=== PATIENT | male | born 1935 | race Caucasian/White ===

== ENCOUNTER 2017-05-31 04:56 | Inpatient (IN) | payer OTHER, BC ==
[2017-05-06 09:23] VITALS: Ht 172.7 cm; Wt 77.9 kg
--- NOTE | 2017-05-06 10:00 | PAT Medication Instructions ---
Service Date May 06, 2017. Current Home Medication List Acetaminophen (Tylenol), 1,000 MG PO BID Albuterol Hfa (Ventolin Hfa), 2 PUFFS INH Q6H PRN for PRN Atorvastatin (Lipitor), 10 MG PO HS Azelastine Hcl-Fluticasone Pro (Dymista), 1 SPRY SAY BID Enteral Nutrition Formula (Ensure Plus Vanilla), 1 CAN GJT NOON Fluticasone Prop/Salmeterol (Advair Diskus 100/50 60 Dose), 1 PUFF INH BID Levothyroxine Sodium (Synthroid), 100 MCG PO QAM Loratadine (Claritin), 10 MG PO PRN Losartan Potassium (Cozaar), 1 TAB PO QAM Metoprolol Succinate (Toprol Xl), 50 MG PO QPM Multiple Vitamins W/ Minerals (Centrum Silver), 1 TAB PO QAM Ranitidine (Zantac), 150 MG PO BID Saline ([place] Nasal [place]), 1 SPRAY NA DAILY PRN for DRY NOSE Saline ([place] Nasal Drops), 2 DROPS SAY PRN Tamsulosin HCl (Tamsulosin HCl), 0.4 MG PO QPM Medication Instructions For Your Scheduled Surgery - Hold the following medications the morning of surgery: Multiple Vitamins W/ Minerals (Centrum Silver), 1 TAB PO QAM Losartan Potassium (Cozaar), 1 TAB PO QAM Loratadine (Claritin), 10 MG PO PRN Enteral Nutrition Formula (Ensure Plus Vanilla), 1 CAN GJT NOON - Take the following medications the morning of surgery with a sip of water: Ranitidine (Zantac), 150 MG PO BID Saline ([place] Nasal [place]), 1 SPRAY NA DAILY PRN for DRY NOSE (if needed) Saline ([place] Nasal Drops), 2 DROPS SAY PRN (if needed) Albuterol Hfa (Ventolin Hfa), 2 PUFFS INH Q6H PRN for PRN (if needed, and bring it with you to the hospital) Levothyroxine Sodium (Synthroid), 100 MCG PO QAM Azelastine Hcl-Fluticasone Pro (Dymista), 1 SPRY SAY BID Fluticasone Prop/Salmeterol (Advair Diskus 100/50 60 Dose), 1 PUFF INH BID Acetaminophen (Tylenol), 1,000 MG PO BID (can be taken up to four hours before surgery) - Take the following medications as scheduled the night before surgery: Atorvastatin (Lipitor), 10 MG PO HS Metoprolol Succinate (Toprol Xl), 50 MG PO QPM Ranitidine (Zantac), 150 MG PO BID Saline ([place] Nasal [place]), 1 SPRAY NA DAILY PRN for DRY NOSE (if needed) Saline ([place] Nasal Drops), 2 DROPS SAY PRN (if needed) Tamsulosin HCl (Tamsulosin HCl), 0.4 MG PO QPM Albuterol Hfa (Ventolin Hfa), 2 PUFFS INH Q6H PRN for PRN (if needed) Azelastine Hcl-Fluticasone Pro (Dymista), 1 SPRY SAY BID Loratadine (Claritin), 10 MG PO PRN (if needed) Fluticasone Prop/Salmeterol (Advair Diskus 100/50 60 Dose), 1 PUFF INH BID Acetaminophen (Tylenol), 1,000 MG PO BID If you have any questions please call us at [phone] or [phone] or [phone]
[2017-05-06 10:40] LABS: BASO % 0.5 %; BASO ABS # 0.04 K/uL (0-0.2); EOS % 1.9 %; EOS ABS # 0.14 K/uL (0-0.5); HEMOGLOBIN 13.6 g/dL (14.0-18.0); IG# 0.02 K/uL (0.00-0.02); LYMPH % 13.4 %; LYMPH ABS # 1.01 K/uL (1.2-3.4); MEAN CELL VOLUME 90.7 fL (80-100); MEAN CORPUSCULAR HEMOGLOBIN 31.6 pg (25-34); MEAN CORPUSCULAR HGB CONC 34.9 g/dl (32-36); MEAN PLATELET VOLUME 8.8 fL (7.4-10.4); MONO % 8.7 %; MONO ABS # 0.66 K/uL (0.11-0.59); NEUT % 75.2 %; NEUT ABS # 5.68 K/uL (1.4-6.5); PLATELET COUNT 210 K/uL (130-400); RED CELL DISTRIBUTION WIDTH CV 13.4 % (11.5-14.5); RED CELL DISTRIBUTION WIDTH SD 44.2 fL (36.4-46.3); WHITE BLOOD COUNT 7.55 K/uL (4.8-10.8)
[2017-05-06 10:50] LABS: PTT PATIENT 28.7 SECONDS (21.0-31.0)
--- NOTE | 2017-05-06 11:07 | DIAGNOSTIC IMAGING REPORT ---
CHEST 2 VIEWS ROUTINE CLINICAL HISTORY: 81 years-old Male presenting with preoperative assessment. TECHNIQUE: PA and lateral views of the chest were obtained. COMPARISON: 10/06/2015. FINDINGS: Left subclavian pacer with leads in the right atrium and right ventricular apex. Atherosclerosis and tortuosity of the thoracic aorta. Cardiac silhouette normal in size. Lungs mildly hyperinflated. No new focal opacity. No pleural effusion or pneumothorax. Slightly exaggerated thoracic kyphosis. Degenerative changes of the thoracic spine. Upper abdomen normal. IMPRESSION: 1. Mild apparent hyperinflation could be due to underlying emphysema or slightly exaggerated thoracic kyphosis. No convincing evidence of acute cardiopulmonary disease. Electronically signed by: Ottoniel Grady M.D. 05/06/2017 11:06 AM Dictated Date/Time: 05/06/2017 11:04 AM
[2017-05-06 12:14] LABS: CALCIUM 10.2 mg/dl (8.5-10.1); CREATININE 1.17 mg/dl (0.60-1.40); POTASSIUM 4.7 mmol/L (3.5-5.1)
--- NOTE | 2017-05-23 22:03 | HISTORY & PHYSICAL EXAMINATION ---
DATE OF ADMISSION: 05/31/2017 CHIEF COMPLAINT: Left hip pain. HISTORY OF PRESENT ILLNESS: An 81-year-old gentleman referred by my partner Dr. Mathis, for surgical treatment of his left hip. He has had a 1+ year history of increasing left hip pain, discomfort and has failed response to conservative care. He describes groin pain, thigh pain and buttock pain. He has resorted to using a cane for the past 3-4 months to get around as a result. He has nighttime discomfort. He has difficulty putting his shoes and socks on. He would like to have this hip replaced. The patient does have a significant cardiac history followed by Dr. Altamirano as well as Dr. Hernadez. He is on Xarelto and has a pacemaker in place. PAST MEDICAL HISTORY: Significant for: 1. Hypertension. 2. Elevated cholesterol. 3. Cardiac history with a pacemaker in place. 4. Asthma. 5. Thyroid cancer status post resection. 6. Low back pain. 7. Gastroesophageal reflux disease. 8. Hiatal hernia. PAST SURGICAL HISTORY: Previous surgeries include: 1. Herniorrhaphy x2. 2. Thyroid removal for cancer. 3. Partial colon removal. 4. Pacemaker placement. ALLERGIES: PANTOPRAZOLE. CURRENT MEDICINES: Include: 1. Synthroid 100 mcg a day. 2. Advair 100/50. 3. Azelastine nasal spray. 4. Albuterol. 5. Tamsulosin. 6. Atorvastatin 10 mg a day. 7. Ranitidine 150 mg twice a day. 8. Meloxicam 7.5 mg a day. 9. Losartan 25 mg a day. 10. Metoprolol 50 mg a day. 11. Claritin 10 mg a day. 12. Centrum Silver. 13. Ensure nutritional shake. 14. Glucosamine/chondroitin. 15. [place] nasal spray. SOCIAL HISTORY: This is an 81-year-old male. He is . Rare alcohol intake. He does not smoke. FAMILY HISTORY: Negative for heart disease, diabetes, or blood clots. REVIEW OF SYSTEMS: Negative for diabetes. Denies any chest pain or shortness of breath. No history of DVT or PE. He does have a pacemaker in place and followed by Dr. Hernadez. PHYSICAL EXAMINATION: GENERAL: Reveals a pleasant elderly male, looks younger than his-stated age. HEENT: Benign. NECK: Supple. No lymphadenopathy. LUNGS: Clear to auscultation. HEART: Regular rate and rhythm. ABDOMEN: Soft, nontender, nondistended. EXTREMITIES: Grossly neurovascularly intact except as follows: Examination of left hip and leg reveals patient walks with a markedly antalgic gait. He is about 0.5 cm short on the left side. He has got pain with any type of hip motion. He internally rotates to -5, external rotation to 20 degrees. Negative straight leg raise. NEUROLOGICAL: He is neurologically intact. X-RAYS: X-ray of the left hip reviewed. It shows advanced left hip DJD. He has got complete loss of the superior joint space. He has got cystic change in the femoral head and acetabulum. ASSESSMENT: An 81-year-old male with a history of a cardiac pacemaker with advanced left hip degenerative joint disease, gradually gotten worse over the past year and unresponsive to conservative treatment. He would like to have his hip replaced. PLAN: We will take him to the operating do a left total hip replacement. The risks and benefits of this procedure were explained to the patient including the limb to DVT, PE, , infection, neurological injury, vascular injury, bleeding problem, pain, limited range of motion, stiffness, failure relieve symptoms, incomplete relief of symptoms, need for further surgery in the future, fracture, leg length inequality, nerve palsy, need for blood transfusion, etc. The patient understands and desires. Informed consent was obtained. We will likely have Dr. Hernadez follow him in the hospital. He is hoping to be discharged home using [facility]. He will need to stop his Meloxicam 10 to 12 days preoperatively. He knows to take his metoprolol the morning of surgery.
[~2017-05-31] VITALS: Ht 172.7 cm; Wt 77.9 kg
[2017-05-31] VITALS (10 sets, daily range): BP systolic 112–157; BP diastolic 62–89; PULSE 60–70; TEMP 36.4–36.9; O2SAT 95–100
[~2017-05-31 04:56] MED LIST: ACET-1256 PO; ADVIN10/60 INH; ATOR10TA82 PO; AZEL30SP NAE; CLR10 PO; FLM4 PO; LEVO100T PO; LOSA1TAB PO; METO-217 PO; MULTCHW PO; NUTR-977 GJT; RANI150T85 PO; SALI0.6510; SALI0.658 NAE; VNTHFA/IN INH
[2017-05-31] MEDS ORDERED: TRANEXAMIC ACID INJ 1,000 MG x 1 Bag Preop IV SCH ×2 (06:00)
[2017-05-31] MEDS ORDERED: ACETAMINOPHEN 500 MG TAB PO SCH (06:00)
[2017-05-31] MEDS ORDERED: SCOPOLAMINE 1.5 MG TDSY TD SCH (06:00)
[2017-05-31] MEDS ORDERED: LACTATED RINGER'S 1000ML 1,000 ML IV SCH (06:00)
[2017-05-31] MEDS ORDERED: GABAPENTIN 300 MG CAP PO SCH (06:00)
[2017-05-31] MEDS ORDERED: LACTATED RINGER'S 1000ML IV SCH (06:00)
[2017-05-31] MEDS ORDERED: METOCLOPRAMIDE HCL 10 MG TAB PO SCH (06:00)
[2017-05-31] MEDS ORDERED: CEFAZOLIN 2000MG IV PUSH 15 ML IV SCH (06:00)
[2017-05-31] MEDS ORDERED: LACTATED RINGER'S 1000ML 500 ML IV SCH (06:00)
[2017-05-31] MEDS ORDERED: FAMOTIDINE 20 MG TAB PO SCH (06:00)
[2017-05-31] MEDS: CHECK SCOPOLAMINE PATCH PLACEMENT SCH ×2 (06:04→23:31)
[2017-05-31] MEDS ORDERED: BUPIVACAINE/EPINEPHRINE 0.5% MPF 1:200,000 30 ML VIAL ONE (06:34)
[2017-05-31] MEDS ORDERED: BACITRACIN 50000 UNIT VIAL ONE (06:34)
[2017-05-31] MEDS ORDERED: LIDOCAINE HCL 2% 2 ML VIAL (20MG/ML) ONE (06:37)
[2017-05-31] MEDS ORDERED: PROPOFOL IV EMULSION 10 MG/ML 20 ML VIAL IV ONE ×2 (06:37→07:31)
[2017-05-31] MEDS ORDERED: BUPIVACAINE 0.5 % 5 MG/1 ML PF 10ML VIAL ONE (06:38)
[2017-05-31] MEDS ORDERED: FENTANYL CITRATE INJ 50 MCG/1 ML 2 ML VIAL ONE (06:38)
[2017-05-31] MEDS ORDERED: MIDAZOLAM HCL 1 MG/ML 2ML VIAL ONE (06:38)
--- NOTE | 2017-05-31 06:50 | History & Physical Bridge Note ---
H&P Re-Evaluation Bridge Note: I have examined the patient, reviewed the History & Physical and in the interval since the performance of the History & Physical I have noted the following changes of clinical significance: No changes noted
[2017-05-31] MEDS ORDERED: EpHEDrine SULFATE 50MG/5ML SYR ONE (07:31)
--- NOTE | 2017-05-31 08:22 | [facility] Post Operative Brief Note ---
Immediate Operative Summary Operative Date May 31, 2017. Pre-Operative Diagnosis Advanced Left Hip Degenerative Joint Disease Post-Operative Diagnosis Advanced Left Hip Degenerative Joint Disease Procedure(s) Performed Left Total Hip Arthroplasty--Uncemented Surgeon Dr. Connell Program Developer Surgeon(s) KAEL Jose Estimated Blood Loss 200 ml Findings Consistent with Post-Op Diagnosis Fluids (cc crystalloids) 800 cc Specimens A. Left Femoral Head Drains None Anesthesia Type Spinal MAC Complication(s) none Disposition Accompanied Pt To Recover: yes Disposition: Recovery Room / PACU
[2017-05-31] MEDS ORDERED: SODIUM CHLORIDE 0.65% NA SOLN 45 ML (OCEAN) PRN (08:30)
[2017-05-31] MEDS ORDERED: SALINE NASAL GEL (AYR) 14.1 GM TUBE PRN (08:30)
[2017-05-31] MEDS ORDERED: ALBUTEROL HFA 8 GM INHALER INH PRN (08:30)
[2017-05-31] MEDS ORDERED: LORATADINE 10 MG TAB PO PRN (08:30)
[2017-05-31] MEDS ORDERED: BISACODYL 10 MG SUPP PR PRN (08:30)
[2017-05-31] MEDS ORDERED: SILVER SULFADIAZINE 1% CR 50 GM JAR EXT PRN (08:30)
[2017-05-31] MEDS ORDERED: HYDROmorphone INJ 0.5 MG/0.5 ML SYR IV PRN (08:30)
[2017-05-31] MEDS ORDERED: ONDANSETRON INJ 2 MG/ML 2 ML VIAL IV PRN ×2 (08:30→08:45)
[2017-05-31] MEDS ORDERED: TAMSULOSIN HCL 0.4 MG CAP PO PRN (08:30)
[2017-05-31] MEDS ORDERED: MAGNESIUM HYDROXIDE SUSP 30 ML UDC PO PRN (08:30)
[2017-05-31] MEDS ORDERED: ALUMINUM/MAGNESIUM/SIMETH (MAALOX MAX) 30 ML UDC PO PRN (08:30)
[2017-05-31] MEDS ORDERED: ZOLPIDEM TARTRATE 5 MG TAB PO PRN (08:30)
[2017-05-31] MEDS ORDERED: TRAMADOL HCL 50 MG TAB PO PRN (08:30)
[2017-05-31] MEDS ORDERED: METOCLOPRAMIDE HCL INJ 5 MG/ML 2 ML VIAL IV PRN (08:30)
[2017-05-31] MEDS ORDERED: HYDROmorphone INJ 1 MG/ML SYR IV PRN (08:45)
[2017-05-31] MEDS ORDERED: EpHEDrine SULFATE INJ 50 MG/ML AMP IV PRN (08:45)
[2017-05-31] MEDS ORDERED: ATROPINE SULFATE 0.1 MG/ML 5ML SYR IV PRN (08:45)
[2017-05-31] MEDS ORDERED: FENTANYL CITRATE INJ 50 MCG/1 ML 2 ML VIAL IV PRN (08:45)
--- NOTE | 2017-05-31 08:51 | DIAGNOSTIC IMAGING REPORT ---
AP PELVIS, CROSSTABLE LATERAL LEFT HIP History: Left total hip arthroplasty. Degenerative arthritis. Postop. FINDINGS: The patient is status post a left total hip arthroplasty. The hardware is intact. No fracture or dislocation. Skin deepa are in place. IMPRESSION: Left total hip arthroplasty. No evidence for hardware complication. Electronically signed by: Alejandro Cardoso M.D. 05/31/2017 8:50 AM Dictated Date/Time: 05/31/2017 8:47 AM
[2017-05-31] MEDS ORDERED: PANTOprazole SOD 40 MG TAB PO SCH (09:00)
--- NOTE | 2017-05-31 09:09 | Anesthesiology Progress Note ---
Anesthesia Post Op Note Date & Time May 31, 2017 at 09:09 Vital Signs Pain Intensity: 0 Vital Signs Past 12 Hours Date Time Temp Pulse Resp B/P (MAP) Pulse Ox O2 Delivery O2 Flow Rate FiO2 05/31/17 09:00 60 12 110/62 97 Nasal Cannula 2 05/31/17 08:50 36.5 62 12 123/58 93 Nasal Cannula 2 05/31/17 08:40 66 15 118/62 98 Nasal Cannula 2 05/31/17 08:30 74 17 108/54 100 Oxymask 6 05/31/17 08:23 36.4 69 12 101/53 100 Oxymask 10 05/31/17 05:44 36.8 64 20 157/89 96 Room Air Notes Mental Status: alert / awake / arousable, participated in evaluation Pt Amnestic to Procedure: Yes Nausea / Vomiting: adequately controlled Pain: adequately controlled Airway Patency, RR, SpO2: stable & adequate BP & HR: stable & adequate Hydration State: stable & adequate Neuraxial Anesthesia: was administered, sensory block is resolving Anesthetic Complications: no major complications apparent
[2017-05-31] MEDS: DOCUSATE SODIUM 100 MG CAP PO SCH ×2 (10:12→21:05)
[2017-05-31] MEDS: LOSARTAN POTASSIUM 25 MG TAB PO SCH (10:12)
[2017-05-31] MEDS: MULTIVITAMIN TAB PO SCH (10:12)
[2017-05-31] MEDS: CEROVITE ADV FORMULA TAB PO SCH (10:13)
[2017-05-31] MEDS: KETOROLAC TROMETHAMINE 15 MG/ML VIAL IV. SCH ×3 (10:13→21:34)
[2017-05-31] MEDS: D5W AND 1/2NSS + 20MEQ KCL 1,000 ML IV SCH ×2 (10:13→21:02)
[2017-05-31] MEDS: FERROUS GLUCONATE 324 MG TAB PO SCH ×2 (12:23→17:18)
[2017-05-31] MEDS: ACETAMINOPHEN 500 MG TAB PO SCH ×2 (13:36→21:34)
[2017-05-31] MEDS ORDERED: TRANEXAMIC ACID INJ 1,000 MG in SODIUM CHLORIDE 0.9% 100ML 100 ML IV ONE (14:30)
--- NOTE | 2017-05-31 14:34 | Cardiology Consultation ---
Cardiology Consultation Date of Service May 31, 2017. Cardiology Consultation Indication: Consultation for postop cardiac management History: This is an 81-year-old male patient who is status post left total hip replacement. He usually follows with Dr. Hernadez through our clinic with a history of tachybradycardia syndrome and a permanent pacemaker. He saw Dr. Hernadez in November and things were going well. Dr. Hernadez cleared him for this surgery. The patient had his pacemaker interrogated in February and is functioning appropriately. He also had an echocardiogram last year that indicated no significant valvular pathology and normal LV function. He did well with his surgery. He has no complaints and is convalescing on the orthopedic floor. Allergies: Meloxicam and pantoprazole Current Inpatient Medications Medications (Trade) Dose Ordered Sig/Rula Route Start Time Stop Time Status Last Admin Dose Admin Scopolamine (Transderm-Scop Patch) 1.5 mg PREOP TD 05/31/17 06:00 05/31/17 15:00 05/31/17 06:04 1.5 MG Miscellaneous (Remove Transderm-Scop Patch) 1 ea Q72H N/A 06/03/17 06:00 06/03/17 06:01 Miscellaneous Information (Check Scopolamine Patch Placement) 1 ea QS N/A 05/31/17 16:00 06/03/17 05:59 05/31/17 06:04 1 EA Potassium Chloride/Dextrose/ Sod Cl 1,000 ml @ 100 mls/hr Q10H IV 05/31/17 10:00 06/01/17 08:21 05/31/17 10:13 100 MLS/HR Ketorolac Tromethamine (Toradol Inj) 15 mg Q6H IV. 05/31/17 10:00 06/01/17 08:29 05/31/17 10:13 15 MG Acetaminophen (Tylenol Tab) 1,000 mg Q8H PO 05/31/17 14:00 06/30/17 08:29 05/31/17 13:36 1,000 MG Magnesium Hydroxide (Milk Of Magnesia Susp) 30 ml Q6H PRN PO 05/31/17 08:30 06/30/17 08:29 Bisacodyl (Dulcolax Supp) 10 mg DAILY PRN LA 05/31/17 08:30 06/30/17 08:29 Senna (Senokot Tab) 17.2 mg HS PO 05/31/17 21:00 06/30/17 20:59 Docusate Sodium (coLACE CAP) 100 mg BID PO 05/31/17 09:00 06/30/17 08:59 05/31/17 10:12 100 MG Al Hydrox/Mg Hydrox/Simethicone (Maalox Max Susp) 15 ml Q4H PRN PO 05/31/17 08:30 06/30/17 08:29 Zolpidem Tartrate (Ambien Tab) 5 mg HSZ PRN PO 05/31/17 08:30 06/30/17 08:29 Multivitamins (Multivitamin Tab) 1 tab QAM PO 05/31/17 09:00 06/30/17 08:59 05/31/17 10:12 1 TAB Ondansetron HCl (Zofran Inj) 4 mg Q6H PRN IV 05/31/17 08:30 06/30/17 08:29 Metoclopramide HCl (Reglan Inj) 10 mg Q6H PRN IV 05/31/17 08:30 06/30/17 08:29 Ferrous Gluconate (Ferrous Gluconate Tab) 324 mg TIDM PO 05/31/17 12:30 06/30/17 12:29 05/31/17 12:23 324 MG Silver Sulfadiazine (Silvadene 1% Crm 50GM Jar) 1 appln BID PRN EXT 05/31/17 08:30 06/30/17 08:29 Tramadol HCl (Ultram Tab) 1 TABLET FOR PAIN RATING... Q4H PRN PO 05/31/17 08:30 06/30/17 08:29 Tamsulosin HCl (Flomax Cap) 0.4 mg QAM PRN PO 05/31/17 08:30 06/30/17 08:29 Cefazolin Sodium 1000 mg/Syringe 7.5 ml @ 2.5 mls/min Q8H IV 05/31/17 16:00 06/01/17 00:02 Tranexamic Acid 1000 mg/Sodium Chloride 110 ml @ 660 mls/hr TODAY@1430 ONCE IV 05/31/17 14:30 05/31/17 14:39 05/31/17 14:02 660 MLS/HR Rivaroxaban (Xarelto Tab) 10 mg Q24H PO 06/01/17 09:00 07/01/17 08:59 Albuterol (Ventolin Hfa Inhaler) 2 puffs Q6H PRN INH 05/31/17 08:30 06/30/17 08:29 Atorvastatin Calcium (Lipitor Tab) 10 mg HS PO 05/31/17 21:00 06/30/17 20:59 Salmeterol Xinafoate/ Fluticasone (Advair Diskus 100/50 Inh) 1 puff BID INH 05/31/17 09:00 06/30/17 08:59 Future hold Levothyroxine Sodium (Synthroid Tab) 100 mcg DAILYBB PO 06/01/17 06:00 07/01/17 05:59 Loratadine (Claritin Tab) 10 mg DAILY PRN PO 05/31/17 08:30 06/30/17 08:29 Losartan Potassium (coZAAR TAB) 25 mg QAM PO 05/31/17 09:00 06/30/17 08:59 05/31/17 10:12 25 MG Metoprolol Succinate (Toprol Xl Tab) 50 mg QPM PO 05/31/17 21:00 06/30/17 20:59 Ranitidine HCl (zANTac TAB) 150 mg BID PO 05/31/17 21:00 06/30/17 20:59 Sodium Chloride ([place] Nasal [place]) 2 sprays DAILY PRN NA 05/31/17 08:30 06/30/17 08:29 Tamsulosin HCl (Flomax Cap) 0.4 mg QPM PO 05/31/17 21:00 06/30/17 20:59 Miscellaneous Information (Order Awaiting Action) 1 ea QS N/A 05/31/17 16:00 06/30/17 15:59 Multivitamins/ Minerals (Multivitamin W/ Minerals Tab) 1 tab QAM PO 05/31/17 09:00 06/30/17 08:59 05/31/17 10:13 1 TAB Sodium Chloride ([place] Saline Nasal Gel) 2 appln DAILY PRN NA 05/31/17 08:30 06/30/17 08:29 Hydromorphone HCl (Dilaudid Inj) 0.5 mg Q1H PRN IV 05/31/17 08:30 06/14/17 08:29 Past medical history: As outlined above the patient has had tachybradycardia syndrome and is status post permanent pacemaker. No other significant cardiac history Social history: Patient is a non-smoker Family medical history: Noncontributory General: The patient denies weight change, night sweats, fever, chills. Head: The patient denies headache and prior head trauma. Cardiovascular: The patient denies chest pain or chest discomfort, dyspnea on exertion, palpitations, PND, orthopnea, edema, spontaneous shortness of breath, syncope and near syncope. Pulmonary: The patient denies cough, wheeze, pleurisy, hemoptysis, sputum, and excessive snoring. Gastrointestinal: The patient denies nausea, vomiting, diarrhea, constipation, bloating, hematemesis, hematochezia, and abdominal pain. Skin: The patient denies diaphoresis and rash. Musculoskeletal: Left total hip replacement Neurological: The patient denies prior stroke and seizures Vital Signs Past 12 Hours Date Time Temp Pulse Resp B/P (MAP) Pulse Ox O2 Delivery O2 Flow Rate FiO2 05/31/17 12:17 36.6 60 16 137/79 (98) 100 2.0 05/31/17 11:15 63 16 121/67 (85) 100 Nasal Cannula 2.0 05/31/17 10:19 60 16 138/79 (98) 100 Nasal Cannula 2.0 05/31/17 09:56 66 16 126/72 (90) 95 2.0 05/31/17 09:30 Nasal Cannula 2.0 05/31/17 09:28 99 Nasal Cannula 2.0 05/31/17 09:20 36.5 63 16 112/62 (79) 99 Nasal Cannula 2.0 05/31/17 09:00 60 12 110/62 97 Nasal Cannula 2 05/31/17 08:50 36.5 62 12 123/58 93 Nasal Cannula 2 05/31/17 08:40 66 15 118/62 98 Nasal Cannula 2 05/31/17 08:30 74 17 108/54 100 Oxymask 6 05/31/17 08:23 36.4 69 12 101/53 100 Oxymask 10 05/31/17 05:44 36.8 64 20 157/89 96 Room Air General Appearance: Alert and Oriented x3. NAD. Head: Normocephalic Atraumatic. Eyes: PERRLA, EOMI, conjunctiva and sclera clear Neck: Supple. No carotid bruits noted. No JVD. No HJD. Respiratory: Breath sounds clear to auscultation bilaterally. No w/r/r. Cardiovascular: Reg rate and rhythm. S1 and S2 noted. No murmurs, rubs, gallops. PMI non displace. Abdomen: Normal bowel sounds, soft nontender. no abdominal bruits. Extremities: Status post left total hip replacement Neuro: No focal deficits. Psychiatric: Normal affect. Impression: 1. Status post left total hip replacement 2. History of tachybradycardia syndrome status post permanent pacemaker which is functioning appropriately Recommendations: The patient is currently clinically stable. I would continue his current outpatient medications. We will follow along with you during his hospital stay. Thank you Dr. Doll
--- NOTE | 2017-05-31 14:46 | PROGRESS NOTE ---
DATE: 05/31/2017 SUBJECTIVE: An 81-year-old gentleman postop from a left total hip replacement. He is doing well. Not having any pain yet. No chest pain or shortness of breath. Not feeling dizzy or lightheaded. OBJECTIVE: VITAL SIGNS: Temperature 36.6. Vital signs stable. PHYSICAL EXAMINATION: GENERAL: Reveals a pleasant elderly male. He is sitting up in bed and looks quite comfortable. EXTREMITIES: Examination of left hip reveals leg length equal. Dressing clean, dry and intact. Thigh is soft and supple. He can dorsiflex and plantarflex his foot appropriately. He is neurologically intact. X-RAYS: X-ray of the right hip from recovery room reviewed. This shows a left uncemented total hip arthroplasty. Components looked to be in good position. No signs of problems. ASSESSMENT: An 81-year-old gentleman postop from a left total hip replacement, doing well. His hip is located. He is neurologically intact. His pain is controlled. He does have a history of a pacemaker placement. He does not have any cardiac symptoms. PLAN: 1. DVT prophylaxis including thigh-high TEDs, SCDs, and Xarelto. We will start him on Xarelto prophylactic dose 24 hours post-surgery and plan on a 30-day course. 2. PT and OT. Weight bear as tolerated. Left total hip protocol. 3. Pain control, doing well with current pain regimen. 4. IV antibiotics x24 hours. 5. Disposition: He is planning to be discharged to home with some home health once adequately recovered.
[2017-05-31] MEDS: CEFAZOLIN IV 1,000 MG in SYRINGE 0 ML IV SCH ×2 (15:58→23:31)
--- NOTE | 2017-05-31 20:47 | OPERATIVE REPORT ---
DATE OF OPERATION: 05/31/2017 SURGEON: Dick Connell MD. HEAD REFRIGERATION ENGINEER: KAEL Broderick. PREOPERATIVE DIAGNOSIS: Left hip degenerative joint disease. POSTOPERATIVE DIAGNOSIS: Same. PROCEDURE PERFORMED: Left uncemented ceramic on highly cross-linked polyethylene total hip arthroplasty. COMPLICATIONS: None. ESTIMATED BLOOD LOSS: 200 mL. FLUID REPLACEMENT: 800 mL crystalloid fluid replacement. ANESTHESIA: Spinal. DRAINS: None. SPECIMENS: Left femoral head sent for pathology. OPERATIVE INDICATIONS: The patient is an 81-year-old gentleman who has had about a year history of increasing left hip pain and discomfort, describes it just got more debilitating over time. He has failed conservative treatment. He had resorted to using a cane to get around. He has had difficulty putting his shoes and socks on. X-rays show progressive hip arthritis. The patient elected to proceed with operative treatment. OPERATIVE FINDINGS: Operative findings revealed advanced left hip DJD. 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 He had quite a bit of synovitis in his hip as well. There was not much in the way of osteophyte formation. Diffuse osteopenia. OPERATIVE IMPLANTS: Operative implants consisted of: 1. Biomet G7 size 54 mm acetabular shell. 2. A 6.5 cancellous acetabular screws, one a 35 mm length and one 30 mm length. 3. An apex hole eliminator. 4. The highly cross-linked polyethylene liner with a 54 mm inner diameter and 36 mm outer diameter. 5. A [place] size 12 coxa vara femoral stem. 6. A +5/36 mm ceramic articular ball. OPERATIVE PROCEDURE: The patient was taken to the operating room, identified and placed on the operating table in supine position. All contact areas were appropriately padded. IV antibiotics were provided by anesthesia team. A spinal anesthetic had been implemented in the holding area. Mc[place] catheter was placed in sterile fashion. The patient was then placed in the right lateral decubitus position. An axillary roll was placed. [facility] hip positioner was used for positioning. Left hip and leg were then prepped and draped in usual sterile fashion. A posterolateral approach to the left hip was then performed through a curvilinear incision centered over the greater trochanter. Sharp dissection was carried through the subcutaneous tissue down to the level of the IT band and gluteal fascia. The IT band and gluteal fascia were incised longitudinally in line with the skin incision. The underlying greater trochanteric bursa was excised. The piriformis and external rotators were tagged and taken off the posterior aspect of the femur. Femoral neck osteotomy cut was made with the final cut about 5-6 mm above the lesser trochanter. Femoral head was removed and sent for pathology. The femur was retracted anteriorly. Attention was then drawn to the acetabulum. The acetabulum labrum was excised. The pulvinar fat was excised. There was quite a bit of synovitis which was excised as well. Sequential reaming of the acetabulum was then performed beginning with a size 49 and progressing up to a 53. A 54 mm Biomet G7 acetabular shell was then placed in about 40 degrees of lateral opening and 20 degrees of anteversion. It was fixed with two 6.5 cancellous acetabular screws. We got fair purchase with the screws, but his bone was pretty osteopenic. Not excellent purchase. A trial acetabular liner was placed. Attention was then drawn to the femur. The femur was entered with [place] cutter followed by canal finder. I tried to minimize the amount of cancellous bone removed for impacting grafting purposes. I then broached beginning with a size 8 and progressing up to a 12. We got good fit with a 12. I did not think I could fit the 13 in without risk of fracture. Calcar reamer used to smoothen off the calcar. We then trialed the hip. All hip trials were stable. In an attempt to recreate leg lengths equal and optimize stability, we elected to use just a +5 head. The hip was fully stable in full extension and external rotation, flexion to 90 degrees, internal rotation to 60+ degrees. Attention was then drawn toward placement of the permanent components. All trial components were removed. An apex hole eliminator was placed. Highly cross-linked polyethylene liner was placed. A size 12 coxa vara Corail uncemented femoral stem was then placed. A +5/36 mm ceramic articular ball was placed. Hip was located and once again found to be stable. Attention was then drawn toward closing. The wound was irrigated with copious amounts of pulsatile lavage solution. I did inject locally with 60 mL of 0.5% Marcaine with epinephrine. The posterior capsule and external rotators were repaired through drill holes in the posterior trochanter with #2 Ti-Cron suture. The IT band and gluteal fascia were then closed with #1 PDS suture in running fashion. The subcutaneous tissues were closed in 2 layers with the deep layer #1 Vicryl suture, subcutaneous tissue with 2-0 Dexon suture in a buried interrupted fashion. Skin was closed with skin deepa. Leg was then cleaned and dried and a sterile dressing of Xeroform, 4 x 4's, sterile ABD pad and foam tape was applied. The patient then transferred to the recovery room in stable condition. The patient tolerated the procedure well with no complication. All needle and sponge counts were correct at the end of the operation. I attest to the content of the Intraoperative Record and any orders documented therein. Any exception s are noted below.
[2017-05-31] MEDS: FLUTICASONE/SALMETEROL 100/50 (ADVAIR) 14 PUFF/1 INHALER INH SCH (21:03)
[2017-05-31] MEDS: TAMSULOSIN HCL 0.4 MG CAP PO SCH (21:05)
[2017-05-31] MEDS: SENNA 8.6 MG TAB PO SCH (21:06)
[2017-05-31] MEDS: ATORVASTATIN 10 MG TAB PO SCH (21:06)
[2017-05-31] MEDS: RANITIDINE HCL 150 MG TAB PO SCH (21:07)
[2017-05-31] MEDS: METOPROLOL SUCC 50MG EXT REL TAB PO SCH (21:07)
[2017-06-01 03:39] VITALS: BP 125/66; PULSE 68; TEMP 36.8; O2SAT 99
[2017-06-01] MEDS: KETOROLAC TROMETHAMINE 15 MG/ML VIAL IV. SCH (03:41)
[2017-06-01] MEDS: D5W AND 1/2NSS + 20MEQ KCL 1,000 ML IV SCH (06:14)
[2017-06-01] MEDS: LEVOTHYROXINE 100 MCG TAB PO SCH (06:14)
[2017-06-01] MEDS: ACETAMINOPHEN 500 MG TAB PO SCH ×3 (06:14→21:08)
[2017-06-01 07:12] VITALS: BP 121/72; PULSE 63; TEMP 36.7; O2SAT 97
[2017-06-01 07:20] LABS: BASO % 0.2 %; BASO ABS # 0.02 K/uL (0-0.2); EOS % 0.3 %; EOS ABS # 0.03 K/uL (0-0.5); HEMATOCRIT 30.9 % (42-52); HEMOGLOBIN 10.4 g/dL (14.0-18.0); IG# 0.03 K/uL (0.00-0.02); LYMPH % 8.6 %; LYMPH ABS # 0.92 K/uL (1.2-3.4); MEAN CELL VOLUME 91.2 fL (80-100); MEAN CORPUSCULAR HEMOGLOBIN 30.7 pg (25-34); MEAN CORPUSCULAR HGB CONC 33.7 g/dl (32-36); MEAN PLATELET VOLUME 8.7 fL (7.4-10.4); MONO % 11.1 %; MONO ABS # 1.19 K/uL (0.11-0.59); NEUT % 79.5 %; NEUT ABS # 8.53 K/uL (1.4-6.5); PLATELET COUNT 159 K/uL (130-400); RED CELL DISTRIBUTION WIDTH CV 13.3 % (11.5-14.5); RED CELL DISTRIBUTION WIDTH SD 44.1 fL (36.4-46.3); WHITE BLOOD COUNT 10.72 K/uL (4.8-10.8)
[2017-06-01] MEDS: CHECK SCOPOLAMINE PATCH PLACEMENT SCH (07:30)
[2017-06-01 07:48] LABS: CALCIUM 8.7 mg/dl (8.5-10.1); CREATININE 1.15 mg/dl (0.60-1.40)
--- NOTE | 2017-06-01 08:20 | PROGRESS NOTE ---
DATE: 06/01/2017 SUBJECTIVE: An 81-year-old gentleman postop day 1 from a left hip replacement. He is doing pretty well. I had to wake him this morning and he is a little bit confused on first awakening. Not really in significant pain. No chest pain or shortness of breath. Not feeling dizzy or lightheaded. OBJECTIVE: VITAL SIGNS: Temperature is 36.7. Vital signs stable. GENERAL: Reveals a pleasant elderly male. He was lying in bed this morning and looks pretty comfortable. He was sleeping when I went in. EXTREMITIES: Examination of left hip reveals the leg lengths to be equal. Hip is located. Thigh is soft and supple. No drainage on his dressing. He can dorsiflex and plantarflex his foot appropriately. LABORATORY DATA: Hemoglobin 10.4. Hematocrit 30.9. Electrolytes are stable. ASSESSMENT: An 81-year-old gentleman postop day 1 from a left hip replacement, doing pretty well. His pain is controlled. He is anemic without symptoms. PLAN: 1. DVT prophylaxis including thigh-high TEDs, SCDs, and Xarelto. We will start 24 hours postoperatively for a total of 30 days. 2. PT/OT. Weight bear as tolerated. Left total hip protocol. 3. Pain control, doing well with current pain regimen. We would really try and limit narcotics to avoid confusion. 4. Disposition: He is hoping to be discharged home with some home health once adequately recovered.
[2017-06-01] MEDS: DOCUSATE SODIUM 100 MG CAP PO SCH ×2 (09:08→21:06)
[2017-06-01] MEDS: FERROUS GLUCONATE 324 MG TAB PO SCH ×3 (09:08→17:52)
[2017-06-01] MEDS: FLUTICASONE/SALMETEROL 100/50 (ADVAIR) 14 PUFF/1 INHALER INH SCH ×2 (09:08→21:08)
[2017-06-01] MEDS: CEROVITE ADV FORMULA TAB PO SCH (09:08)
[2017-06-01] MEDS: RANITIDINE HCL 150 MG TAB PO SCH ×2 (09:08→21:07)
[2017-06-01] MEDS: MULTIVITAMIN TAB PO SCH (09:08)
[2017-06-01] MEDS: RIVAROXABAN 10 MG TAB PO SCH (12:36)
[2017-06-01] MEDS: LOSARTAN POTASSIUM 25 MG TAB PO SCH (12:36)
--- NOTE | 2017-06-01 15:14 | Cardiology Follow-Up ---
Subjective Subjective Date of Service: Jun 01, 2017. Pt evaluation today including: conversation w/ patient, physical exam, chart review, lab review, review of studies, review of inpatient medication list Additional Details: Pt seen and examined, states that he feels well. No significant knee pain. Denies cp, sob, palpitations, lightheadedness or dizziness. Review of Systems Respiratory: No see HPI, No cough, No sputum, No wheezing, No shortness of breath, No dyspnea on exertion, No dyspnea at rest, No hemoptysis, No problem reported Cardiac: No see HPI, No chest pain, No orthopnea, No PND, No edema, No claudication, No palpitations, No problem reported Objective Vital Signs Last Vital Signs Documentation Date Time Temp Pulse Resp B/P (MAP) Pulse Ox O2 Delivery O2 Flow Rate FiO2 06/01/17 07:39 Room Air 06/01/17 07:12 36.7 63 18 121/72 (88) 97 05/31/17 16:00 2.0 Physical Exam: General Appearance: WD/WN, no apparent distress Eyes: bilateral eyes normal inspection, bilateral eyes PERRL, bilateral eyes EOMI ENT: normal ENT inspection, hearing grossly normal, pharynx normal Neck: supple, no adenopathy, thyroid normal, no JVD, no carotid bruits, trachea midline Respiratory/Chest: chest non-tender, lungs clear, normal breath sounds, no respiratory distress, no accessory muscle use Cardiovascular: regular rate, rhythm, no edema, no gallop, no JVD, no murmur Abdomen: normal bowel sounds, non tender, soft, no organomegaly, no pulsatile mass Extremities: normal inspection, no pedal edema, no calf tenderness Neurologic/Psychiatric: sound tester II-XII nml as tested, no motor/sensory deficits, alert, normal mood/affect, oriented x 3 Skin: normal color, warm/dry, no rash Lymphatic: no adenopathy Assessment and Plan 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 post-op L hip replacement tolerated procedure well pain controlled DVT prophylaxis per ortho
[2017-06-01 15:45] VITALS: BP 153/72; PULSE 85; TEMP 36.9; O2SAT 98
[2017-06-01 17:47] VITALS: O2SAT 98
[2017-06-01 20:05] VITALS: BP 142/70; PULSE 65
[2017-06-01] MEDS ORDERED: ULT50X PO (20:50)
[2017-06-01] MEDS ORDERED: XRL10 PO (20:50)
[2017-06-01] MEDS ORDERED: FRRG PO (20:50)
[2017-06-01] MEDS ORDERED: ACET-24 PO (20:50)
--- NOTE | 2017-06-01 20:55 | Discharge Instructions ---
Discharge Instructions Date of Service Jun 01, 2017. Admission Reason for Admission: Left Hip Degenerative Joint Disease Discharge Discharge Diagnosis / Problem: Left Hip Replacement Discharge Goals Goal(s): Decrease discomfort, Improve function, Increase independence, Improve disease control, Therapeutic intervention Activity Recommendations Activity Limitations: per Instructions/Follow-up section (Total Hip Precautions ) Weightbearing Status: Left weightbearing . Instructions / Follow-Up Instructions / Follow-Up ACTIVITY RECOMMENDATIONS: Physical Therapy: * Aggressive physical therapy is not usually needed. You will learn to take care of yourself safely and walk. * Follow the "Hip Precautions Instructions." * In some cases, the addiction social worker at the hospital will arrange to have a therapist come to your house for the first couple of weeks to help you learn these skills. * You need to practice on your own or with the help of a family member as needed. * When you learn these skills, most of the therapy can be done on your own. Home Exercise: * You were shown a series of exercises in the hospital. Do these exercises three to four times each day including the exercises you were shown in physical therapy. Walking: * Get up and walk several times each day. For the first four weeks, try not to stand or walk for more than one hour at a time. If you do stand or walk for more than one hour, you will not hurt anything, but your leg will likely swell. * As you feel comfortable, you may change from the walker or crutches to a cane and then to independent walking. MEDICATIONS: New Medicine: * You will likely be taking one or more of these medicines: 1. Tramadol - Take, as directed, when you need it, every four to six hours to control your pain. 2. Iron Sulfate - Take two times each day for the month after surgery to help you replace the blood lost during surgery. 3. Xarelto - Thins your blood to lessen the chance of forming a blood clot. * The most common side effects of pain medicine and iron are nausea and constipation. If nausea or constipation is too much of a problem or if you have any questions about your new medicines or doses, call [facility] at [phone]. We will try to help you manage these issues. VERY IMPORTANT TO READ AND REVIEW" Pain: * The immediate post-operative period after hip replacement surgery is often quite painful. * You are given a prescription for pain medicine. You should take it, as directed, when you need it, especially before physical therapy and before going to bed. Pain that interferes with sleep is very common and can last several months. * You will likely need pain medicine for the first two to four weeks. It will not stop all of the pain. The pain will lessen and as you feel better, you may change to milder pain medicine such as Tylenol. * The most common side effects of pain medicine are nausea and constipation, so don't take more than you need. SPECIAL CARE INSTRUCTIONS: TEDs/Elastic Stockings: * The white elastic stockings help limit swelling and prevent blood clots from forming in your legs. The more you wear them, the more they work. * Wear them for six weeks. Prevention of Infection: * Take antibiotics one hour before any dental cleaning, dental work, urological procedure, gastrointestinal procedure or any invasive surgery in order to prevent your new joint from getting infected. * You may get the antibiotics from the doctor performing the procedure or you may call our office at before and we will call in a prescription to the pharmacy of your choice. Things to Watch For: * Drainage from the incision site that occurs more than one week after your surgery. * Severely increased leg pain or swelling. * Increased redness at the incision site. * Fever above 102 degrees Fahrenheit. * Unusual chest pain or shortness of breath. * Unusual pain or burning with urination. Call [facility] at with any of the above problems or if you have any questions about your medicines or recovery. FOLLOW UP VISIT: Make an appointment to see your doctor for approximately two weeks after surgery for a progress check and staple removal by calling the office at . Current Hospital Diet Patient's current hospital diet: Regular Diet Discharge Diet Recommended Diet: Regular Diet Procedures Procedures Performed: Left Total Hip Arthroplasty--Uncemented Pending Studies Studies pending at discharge: no Medical Emergencies . Who to Call and When: Medical Emergencies: If at any time you feel your situation is an emergency, please call [phone] immediately. . Non-Emergent Contact Non-Emergency issues call your: Surgeon . "Provider Documentation" section prepared by Dick Connell. .
--- NOTE | 2017-06-01 21:01 | Discharge Instructions ---
Discharge Instructions Date of Service Jun 01, 2017. Admission Reason for Admission: Left Hip Degenerative Joint Disease Discharge Discharge Diagnosis / Problem: Left Hip Replacement Discharge Goals Goal(s): Decrease discomfort, Improve function, Increase independence, Improve disease control, Therapeutic intervention Activity Recommendations Activity Level: Assistance Required Therapies: Physical Therapy (Total Hip Precautions), Occupational Therapy . Additional Information Patient informed of condition: Yes Advance Directives: No DNR: No Level of Care: Acute Rehab Communicable Disease: No Prognosis: Improving Instructions / Follow-Up Instructions / Follow-Up ACTIVITY RECOMMENDATIONS: Physical Therapy: * Aggressive physical therapy is not usually needed. You will learn to take care of yourself safely and walk. * Follow the "Hip Precautions Instructions." * In some cases, the social services counselor at the hospital will arrange to have a therapist come to your house for the first couple of weeks to help you learn these skills. * You need to practice on your own or with the help of a family member as needed. * When you learn these skills, most of the therapy can be done on your own. Home Exercise: * You were shown a series of exercises in the hospital. Do these exercises three to four times each day including the exercises you were shown in physical therapy. Walking: * Get up and walk several times each day. For the first four weeks, try not to stand or walk for more than one hour at a time. If you do stand or walk for more than one hour, you will not hurt anything, but your leg will likely swell. * As you feel comfortable, you may change from the walker or crutches to a cane and then to independent walking. MEDICATIONS: New Medicine: * You will likely be taking one or more of these medicines: 1. Tramadol - Take, as directed, when you need it, every four to six hours to control your pain. 2. Iron Sulfate - Take two times each day for the month after surgery to help you replace the blood lost during surgery. 3. Xarelto - Thins your blood to lessen the chance of forming a blood clot. * The most common side effects of pain medicine and iron are nausea and constipation. If nausea or constipation is too much of a problem or if you have any questions about your new medicines or doses, call [facility] at . We will try to help you manage these issues. VERY IMPORTANT TO READ AND REVIEW" Pain: * The immediate post-operative period after hip replacement surgery is often quite painful. * You are given a prescription for pain medicine. You should take it, as directed, when you need it, especially before physical therapy and before going to bed. Pain that interferes with sleep is very common and can last several months. * You will likely need pain medicine for the first two to four weeks. It will not stop all of the pain. The pain will lessen and as you feel better, you may change to milder pain medicine such as Tylenol. * The most common side effects of pain medicine are nausea and constipation, so don't take more than you need. SPECIAL CARE INSTRUCTIONS: TEDs/Elastic Stockings: * The white elastic stockings help limit swelling and prevent blood clots from forming in your legs. The more you wear them, the more they work. * Wear them for six weeks. Prevention of Infection: * Take antibiotics one hour before any dental cleaning, dental work, urological procedure, gastrointestinal procedure or any invasive surgery in order to prevent your new joint from getting infected. * You may get the antibiotics from the doctor performing the procedure or you may call our office at before and we will call in a prescription to the pharmacy of your choice. Things to Watch For: * Drainage from the incision site that occurs more than one week after your surgery. * Severely increased leg pain or swelling. * Increased redness at the incision site. * Fever above 102 degrees Fahrenheit. * Unusual chest pain or shortness of breath. * Unusual pain or burning with urination. Call [facility] at with any of the above problems or if you have any questions about your medicines or recovery. FOLLOW UP VISIT: Make an appointment to see your doctor for approximately two weeks after surgery for a progress check and staple removal by calling the office at . Current Hospital Diet Patient's current hospital diet: Regular Diet Discharge Diet Recommended Diet: Regular Diet Procedures Procedures Performed: Left Total Hip Arthroplasty--Uncemented Pending Studies Studies pending at discharge: no Medical Emergencies . Who to Call and When: Medical Emergencies: If at any time you feel your situation is an emergency, please call [phone] immediately. . Non-Emergent Contact Non-Emergency issues call your: Surgeon . . "Provider Documentation" section prepared by Dick Connell. . Core Measure Problem Core Measures: None
[2017-06-01] MEDS: SENNA 8.6 MG TAB PO SCH (21:06)
[2017-06-01] MEDS: ATORVASTATIN 10 MG TAB PO SCH (21:06)
[2017-06-01] MEDS: METOPROLOL SUCC 50MG EXT REL TAB PO SCH (21:07)
[2017-06-01] MEDS: TAMSULOSIN HCL 0.4 MG CAP PO SCH (21:07)
[2017-06-01 22:52] VITALS: BP 111/57; PULSE 62; TEMP 36.8; O2SAT 97
[2017-06-02] MEDS: LEVOTHYROXINE 100 MCG TAB PO SCH (05:45)
[2017-06-02] MEDS: ACETAMINOPHEN 500 MG TAB PO SCH (05:46)
[2017-06-02 06:08] VITALS: BP 158/76; PULSE 67; TEMP 37.2; O2SAT 98
[2017-06-02] MEDS: FLUTICASONE/SALMETEROL 100/50 (ADVAIR) 14 PUFF/1 INHALER INH SCH (07:49)
[2017-06-02] MEDS: FERROUS GLUCONATE 324 MG TAB PO SCH (07:49)
[2017-06-02] MEDS: MULTIVITAMIN TAB PO SCH (07:49)
[2017-06-02] MEDS: DOCUSATE SODIUM 100 MG CAP PO SCH (07:49)
[2017-06-02] MEDS: LOSARTAN POTASSIUM 25 MG TAB PO SCH (07:49)
[2017-06-02] MEDS: CEROVITE ADV FORMULA TAB PO SCH (07:49)
[2017-06-02] MEDS: RANITIDINE HCL 150 MG TAB PO SCH (07:50)
[2017-06-02] MEDS: RIVAROXABAN 10 MG TAB PO SCH (07:50)
--- NOTE | 2017-06-02 08:39 | PROGRESS NOTE ---
DATE: 06/02/2017 SUBJECTIVE: An 81-year-old gentleman postop day #2 from a left total hip replacement. He is doing well. Much more awake, alert and appropriate this morning. He has got some moderate pain but controlled. No chest pain or shortness of breath. Not feeling dizzy or lightheaded. He is pretty adamant about going home with some home health. OBJECTIVE: VITAL SIGNS: Temperature 37.2. Vital signs stable. GENERAL: Reveals a pleasant elderly male. He is sitting up at his bedside. He is awake, alert and oriented. EXTREMITIES: Examination of left hip reveals the dressing to be clean, dry and intact. Hip is located. He is neurologically intact. ASSESSMENT: An 81-year-old gentleman postop day #2 from a left total hip replacement, doing well. Pain is controlled. He is neurologically intact. PLAN: 1. DVT prophylaxis including thigh-high TEDs, SCDs, and Xarelto for a month. 2. PT/OT. Weightbear as tolerated. Left total hip protocol. 3. Pain control, doing well with current pain regimen. 4. Confusion. He was mildly confused yesterday but seems much improved today. Looks to be at baseline. 5. Disposition: Plan to discharge to home with some home health at his request.
[2017-06-02 09:54] VITALS: BP 158/76; PULSE 67; TEMP 37.2; O2SAT 98
== END 2017-06-02 11:37 | disposition home health service (06) | DRG 470 ==
LOC: C.ACU 04:56 → C.3E 06:30 → ENRESERV 09:00
PROVIDERS: ADMIT Orthopaedic Surgery Sports Medicine; ATTEND Orthopaedic Surgery Sports Medicine
PROC: 0SRB04A Replacement of Left Hip Joint with Ceramic on Polyethylene Synthetic Substitute, Uncemented, Open Approach (ICD-10-PCS; principal; 2017-05-31 07:00)
DX: M16.12 Unilateral primary osteoarthritis, left hip (principal); I10 Essential (primary) hypertension; J45.909 Unspecified asthma, uncomplicated; K21.9 Gastro-esophageal reflux disease without esophagitis; Z95.0 Presence of cardiac pacemaker; Z85.850 Personal history of malignant neoplasm of thyroid

== ENCOUNTER 2023-08-17 11:33 | Inpatient (IN) ==
--- NOTE | 2023-08-17 11:49 | Emergency Department Note ---
Impression & Plan Closed left ankle fracture, Left leg pain, Left leg swelling ED Provider Note NAME: MICHELLE WATTS AGE: 87 SEX: M : 1935 ARRIVES VIA: Ambulance INFORMANT: [Patient] ED PROVIDER(S): [Raymond Browning MD] CHIEF COMPLAINT: Pain HISTORY OF PRESENT ILLNESS: The patient is an 87-year-old male who states that yesterday, he twisted his left ankle and foot. He has pain and there is some swelling and bruising now noted. There was no true fall. He denies any other injuries. As things worsened overnight, he is concerned for fracture. PMHx/PSHx/Social Hx: See Below PHYSICAL EXAM: GENERAL: Patient is in no acute distress. EXTREMITIES: No cyanosis. The patient does have some edema of the left ankle in comparison to the right. He is painful over both the medial and lateral aspect of the left ankle. No real pain with palpation of the bones of the foot. He does have some contusion to the medial portion of the left foot. The left knee is nontender and there is no joint effusion. There is no erythema to the left leg to suggest cellulitis. NEUROLOGIC: Awake and alert, no acute motor or sensory deficits, no focal weakness. DIFFERENTIAL DIAGNOSIS: Sprain, strain, fracture, contusion, among others. EMERGENCY DEPARTMENT PROCEDURES: MEDICAL DECISION MAKING: The patient presents with an injury to his left ankle and foot. This was the only place he had discomfort. He was tender along the medial and lateral left ankle but not the foot. There was left leg swelling. The patient had a left ankle and left foot film performed, there was a trimalleolar left ankle fracture, no foot fracture. I did speak with orthopedics. They recommended a CT of the ankle. Given his age, given his inability to ambulate, hospitalization with potential surgery tomorrow was recommended. There was no leukocytosis. A mild anemia was seen with a hemoglobin of 12.9. There was a normal platelet count. No coagulopathy. No renal failure. The left ankle CT confirms a trimalleolar fracture. I did speak with the patient and case management. The on-call hospitalist was consulted. Prior/Outside records/notes reviewed: Today's EMS notes describing his presentation and transport to this hospital. Imaging/x-ray results per my interpretation: X-rays of the left ankle and foot were performed. There was no fracture of the foot. There was a trimalleolar ankle fracture with minimal displacement Chronic Medical/Social conditions affecting care: Advanced age. Care/Management discussed with: Orthopedics on-call-Dr. Basilio. Case management and the on-call hospitalist. Level of care consideration(s): After review of the information above and other included data: --I believe the patient requires escalation of care to admission DISPOSITION: Admission Past Med/Surg History Problem List (Updated 08/17/23 @ 15:24 by Raymond Browning MD) Left leg swelling (Acute) Left leg pain (Acute) Closed left ankle fracture (Acute) Trimalleolar fracture of ankle, closed Pacemaker Follows with Dr Hernadez. [employer] device, last checked ~September 2020. Hyperlipidemia Hypertension Squamous cell carcinoma of skin of face (Acute) Nocturia (Acute) Neoplasm of uncertain behavior of skin (Acute) Degenerative joint disease of left hip (Acute) Incomplete emptying of bladder (Acute) Gross hematuria (Acute) Enlarged prostate with lower urinary tract symptoms (LUTS) (Acute) Elevated PSA (Acute) BPH (benign prostatic hyperplasia) (Acute) Arthritis (Acute) Asthma (Acute) well controlled History of basal cell carcinoma (Acute) Thyroid cancer (Acute) ~1969's Tachy-fe syndrome (~2015) Medical History Actinic keratosis BPH (benign prostatic hyperplasia) Osteoarthritis Hx of colonic polyp History of esophageal dilatation Schatzki's ring Surgical History History of cataract surgery right History of total hip arthroplasty (~2017) Left hip History of bowel resection r/t colon polyps History of colonoscopy History of esophagogastroduodenoscopy (EGD) S/P cardiac pacemaker procedure (~09/2015) History of thyroidectomy, total S/P Mohs surgery for basal cell carcinoma Family History Other Cancer Hypertension No family history of adverse response to anesthesia Social History Smoking Status: Never smoker Second Hand Exposure: No; Do You Dip or Chew Tobacco: No; Hx Alcohol Use: Yes Alcohol type: hard liquor Hx Substance Use: No Preferred Language: [place] Communication Ability: Effective Product Owner Required: No Beliefs That Will Affect Care: None Current Living Situation: Spouse Feels Safe at Home: Yes Assistive Devices: Cane, Denture - Upper, Denture - Lower and Glasses Allergies Allergies Allergy/AdvReac Type Severity Reaction Status Date / Time meloxicam Allergy Unknown RECTAL Verified 01/03/21 06:21 BLEEDING WITH IT pantoprazole Allergy Unknown RASH Verified 01/03/21 06:21 Home Meds Home Medications Medication Instructions Recorded Confirmed atorvastatin 10 mg tablet 10 mg PO HS 12/29/18 08/17/23 fluticasone 250 mcg-salmeterol 50 1 puffs inhalation BID 12/29/18 08/17/23 mcg/dose blistr powdr for inhalation (Advair Diskus) food supplemt, lactose-reduced 1 ea PO QAM 12/29/18 08/17/23 (Ensure oral liquid) levothyroxine 88 mcg tablet 88 mcg PO QAM 12/21/20 08/17/23 metoprolol succinate 50 mg 75 mg PO QPM 12/21/20 08/17/23 tablet,extended release 24 hr albuterol sulfate 90 mcg/actuation 2 puff inhalation Q6H PRN sob or 08/17/23 08/17/23 aerosol inhaler wheezing Previous Rx's Medication Instructions Recorded tamsulosin 0.4 mg capsule 0.4 mg PO DAILY 90 days #90 caps 08/10/22 Results & Data (ED) Vital Signs Vital Signs - 24 hr 08/17/23 11:35 08/17/23 14:42 Temperature 36.8 C Temperature Source Oral Pulse Rate 70 Pulse Rate [Finger] 77 Respiratory Rate 18 16 Respiratory Effort / Characteristics Non-Labored Non-Labored Spontaneous Respiratory Depth Normal Normal Respiratory Pattern Regular Blood Pressure 172/85 H Blood Pressure [Right Arm] 129/93 Blood Pressure Mean 114 Blood Pressure Mean [Right Arm] 105 Blood Pressure Position Sitting Pulse Oximetry 97 98 Oxygen Delivery Method Room Air Room Air Sepsis Recent Fever Within 48 Hours No Sepsis New/Unexplained Change in Mental Status No Sepsis Action Taken by Nursing No Action Required Home Medications Current Medication List: was personally reviewed by me Laboratory Data Attestation: I reviewed the patient's lab results. 08/17/23 12:57 08/17/23 12:57 Lab Results 08/17/23 Range/Units 12:57 WBC 6.73 (4.8-10.8) K/ul RBC 4.18 L (4.70-6.10) M/uL Hgb 12.9 L (14.0-18.0) g/dl Hct 38.2 L (42.0-52.0) % MCV 91.4 (80.0-100.0) fL MCH 30.9 (25.0-34.0) pg MCHC 33.8 (32.0-36.0) g/dL RDW Std Deviation 45.8 (36.4-46.3) fL RDW Coeff of Zulma 13.6 (11.5-14.5) % Plt Count 187 (130-400) K/uL MPV 9.3 L (9.4-12.4) fL PT 10.7 (9.0-12.0) Seconds INR 1.0 (0.9-1.1) APTT 29 (21-31) Seconds PTT Ratio 1.1 Sodium 136 (136-145) mmol/L Potassium 4.6 (3.5-5.1) mmol/L Chloride 104 (98-107) mmol/L Carbon Dioxide 24 (21-32) mmol/L Anion Gap 8 (3-11) BUN 21 (6-23) mg/dl Creatinine 1.12 (0.6-1.4) mg/dl Est Cr Clr Drug Dosing 43.3 ml/min Est GFR ( Amer) 67.1 ml/min Est GFR (Non-Af Amer) 57.9 ml/min BUN/Creatinine Ratio 18.8 (10-20) Glucose 101 H (70-99(Fasting)) mg/dl Calcium 9.7 (8.6-10.3) mg/dl Imaging Data Radiologist's Impression: Ankle X-Ray 08/17/23 11:46 XR ankle LT min 3V routine, XR foot LT min 3V routine CLINICAL HISTORY: twisted, pain. left ankle and foot pain. COMPARISON STUDY: None. FINDINGS: There is a mildly displaced oblique fracture within the distal left fibula. This demonstrates up to 3 mm of lateral displacement. No dislocation. Small nondisplaced fractures are noted at the medial and posterior malleolus. There is diffuse soft tissue swelling within the left ankle and foot. No fracture or dislocation within the left foot. The Lisfranc joint is intact. IMPRESSION: 1. Trimalleolar left ankle fracture as described above. No dislocation. 2. No acute fractures within the left foot. ACT 112: Negative or not required by law. Electronically signed by: Alejandro Cardoso M.D. 08/17/2023 12:58 PM Foot X-Ray 08/17/23 11:46 XR ankle LT min 3V routine, XR foot LT min 3V routine CLINICAL HISTORY: twisted, pain. left ankle and foot pain. COMPARISON STUDY: None. FINDINGS: There is a mildly displaced oblique fracture within the distal left fibula. This demonstrates up to 3 mm of lateral displacement. No dislocation. Small nondisplaced fractures are noted at the medial and posterior malleolus. There is diffuse soft tissue swelling within the left ankle and foot. No fracture or dislocation within the left foot. The Lisfranc joint is intact. IMPRESSION: 1. Trimalleolar left ankle fracture as described above. No dislocation. 2. No acute fractures within the left foot. ACT 112: Negative or not required by law. Electronically signed by: Alejandro Cardoso M.D. 08/17/2023 12:[address] 08/17/23 12:[address] DOSE: 488.4 mGy.cm HISTORY: Left ankle pain. fx, communuted TECHNIQUE: Multiaxial CT images of the left ankle were performed and reformatted in the sagittal and coronal plane without the use of contrast. A dose lowering technique was utilized adhering to the principles of ALARA. COMPARISON: Left ankle radiograph 08/17/2023. FINDINGS: There is confirmation of a trimalleolar left ankle fracture. The medial and posterior malleoli fractures are nondisplaced. The distal fibular fracture demonstrates up to 3 mm of lateral and posterior displacement. No dislocation. The calcaneus appears intact. There are small plantar and posterior calcaneal spurs noted. Subcutaneous edema noted within the left ankle. IMPRESSION: Confirmation of the trimalleolar left ankle fracture as above. No dislocation. ACT 112: Negative or not required by law. Electronically signed by: Alejandro Cardoso M.D. 08/17/2023 1:15 PM Chest X-Ray 08/17/23 13:23 XR chest 1V portable HISTORY: preop COMPARISON: Chest 12/17/2005. FINDINGS: No pneumothorax. No pleural effusions. Left basilar linear densities favor subsegmental atelectasis or scarring. Otherwise, the lungs are clear. Calcifications within the aortic knob. The cardiac silhouette remains mildly enlarged. Is left-sided dual-chamber pacemaker. IMPRESSION: Stable mild cardiomegaly. Otherwise, no acute process within the chest. ACT 112: Negative or not required by law. Electronically signed by: Alejandro Cardoso M.D. 08/17/2023 2:44 PM Discharge Plan Visit Data Chief Complaint: Ankle Pain Stated Complaint: ANKLE INJURY ED Provider: Raymond Browning Discharge Problem: Closed left ankle fracture, Left leg pain, Left leg swelling Patient Disposition: Admitted As Inpatient Condition: Good Forms Stand Alone Forms: [facility] [employer] Prescriptions Prescriptions: No Action tamsulosin 0.4 mg capsule 0.4 mg PO DAILY 90 Days Qty: 90 0RF Ensure liquid 1 ea PO QAM fluticasone propion-salmeterol [Advair Diskus] 250-50 mcg/dose blister with device 1 puffs inhalation BID atorvastatin 10 mg tablet 10 mg PO HS metoprolol succinate 50 mg Tablet Extended Release 24 Hr 75 mg PO QPM levothyroxine 88 mcg Tablet 88 mcg PO QAM albuterol sulfate 90 mcg/actuation Hfa Aerosol Inhaler 2 puff INHALATION Q6H PRN (Reason: sob or wheezing) Referrals Referrals: Ferdinand Gomez MD [Primary Care Provider] - Discharge Problem: Closed left ankle fracture Qualifiers: Encounter type: initial encounter Qualified Code(s): S82.892A - Other fracture of left lower leg, initial encounter for closed fracture
--- NOTE | 2023-08-17 13:01 | XRay Report ---
XR ankle LT min 3V routine, XR foot LT min 3V routine CLINICAL HISTORY: twisted, pain. left ankle and foot pain. COMPARISON STUDY: None. FINDINGS: There is a mildly displaced oblique fracture within the distal left fibula. This demonstrat es up to 3 mm of lateral displacement. No dislocation. Small nondisplaced fractures are noted at the medial and posterior malleolus. There is diffuse soft tissue swelling within the left ankle and foot. No fracture or dislocation within the left foot. The Lisfranc joint is intact. IMPRESSION: 1. Trimalleolar left ankle fracture as described above. No dislocation. 2. No acute fractures within the left foot. ACT 112: Negative or not required by law. Electronically signed by: Alejandro Cardoso M.D. 08/17/2023 12:58 PM
[2023-08-17 13:09] LABS: Hematocrit (blood only) 38.2 % (42.0-52.0); Hemoglobin 12.9 g/dl (14.0-18.0); Mean Corpuscular Hemoglobin 30.9 pg (25.0-34.0); Mean Corpuscular Hgb Conc 33.8 g/dL (32.0-36.0); Mean Corpuscular Volume 91.4 fL (80.0-100.0); Mean Platelet Volume 9.3 fL (9.4-12.4); Platelet Count 187 K/uL (130-400); RDW Coefficient of Variation 13.6 % (11.5-14.5); RDW Standard Deviation 45.8 fL (36.4-46.3); Red Blood Count 4.18 M/uL (4.70-6.10); White Blood Count 6.73 K/ul (4.8-10.8)
--- NOTE | 2023-08-17 13:18 | CT Scan Report ---
LEFT ANKLE CT CT DOSE: 488.4 mGy.cm HISTORY: Left ankle pain. fx, communuted TECHNIQUE: Multiaxial CT images of the left ankle were performed and reformatted in the sagittal and coronal plane without the use of contrast. A dose lowering technique was utilized adhering to the pr inciples of CHLOE. COMPARISON: Left ankle radiograph 08/17/2023. FINDINGS: There is confirmation of a trimalleolar left ankle fracture. The medial and posterior malle basim fractures are nondisplaced. The distal fibular fracture demonstrates up to 3 mm of lateral and po sterior displacement. No dislocation. The calcaneus appears intact. There are small plantar and poste rior calcaneal spurs noted. Subcutaneous edema noted within the left ankle. IMPRESSION: Confirmation of the trimalleolar left ankle fracture as above. No dislocation. ACT 112: Negative or not required by law. Electronically signed by: Alejandro Cardoso M.D. 08/17/2023 1:15 PM
--- NOTE | 2023-08-17 13:18 | History & Physical Report ---
Date of Service August 17, 2023 Assessment & Plan (1) Trimalleolar fracture of ankle, closed: (2) Hypertension: (3) Hyperlipidemia: (4) Asthma: (5) Tachy-fe syndrome: (6) Pacemaker: (7) BPH (benign prostatic hyperplasia): Plan This is an 87-year-old male with PMH of hypothyroidism, asthma, tachybradycardia status post pacemaker placement, hypertension, BPH, history of thyroid cancer, dementia and other medical problems listed below who presents after twisting his ankle and was found to have a trimalleolar fracture. Trimalleolar fracture Fall at home, has been ambulating with walker until it became too painful today Lower extremity CT shows confirmation of the trimalleolar left ankle fracture as above. No dislocation VSS, denies any pain at rest. Added tylenol as needed, splinted, should elevate as tolerated Pre-op CXR with stable cardiomegaly, no acute process within the chest. EKG with SR with PACs, RBBB, h/o inferior infarct. Will repeat EKG in AM Revised cardiac index score 0 points or class [address] Gupta of [facility], who plans for OR tomorrow NPO @ [place] HTN BP elevated, optimize pain control. Continue Toprol this evening HLD Chronic, stable. Continue statin Asthma Well-controlled. Continue home inhalers Tachy-fe syndrome S/p pacemaker BPH Continue Tamsulosin. Bladder scan PRN Dementia Not documented in chart but notes memory deficit. A&O x 2 at baseline DVT Ppx: SCDs for now Code status: FULL per discussion with patient, PCP: Patricia Dispo: admitted to med/surg Updated Gayatri over the phone. She is available for updates at [phone]. Patient seen in collaboration with Dr. Guerrero. Please see addendum. I spent a total of 75 minutes coordinating, documenting, and providing care for this patient excluding time spent in the performance of separately billed services. History of Present Illness Chief Complaint: Fall, ankle pain Primary Care Provider: Ferdinand Gomez MD This is an 87-year-old male with PMH of hypothyroidism, asthma, tachybradycardia status post pacemaker placement, hypertension, BPH, history of thyroid cancer, dementia and other medical problems listed below who presents after twisting his ankle. History obtained primarily from over the phone due to patient's dementia. Reportedly got his legs tangled yesterday and fell down on carpet. helped him up and got him a walker to ambulate with but due to worsening pain and difficulty walking today, decided to call EMS to have him brought to ED for further evaluation. States he has difficulty swallowing and diet is primarily liquids. Has incontinence and uses depends. Does ambulate independently at baseline. Is oriented to person and place but has difficulty remembering details or current situation. Resides at [facility] with his , who manages his medications. Patient states he is comfortable right now and ankle does not hurt at rest. No fever, chills, lightheadedness, chest pain, shortness of breath, nausea, vomiting, abdominal pain, dysuria, diarrhea or constipation. Allergies Allergy/AdvReac Type Severity Reaction Status Date / Time meloxicam Allergy Unknown RECTAL Verified 01/03/21 06:21 BLEEDING WITH IT pantoprazole Allergy Unknown RASH Verified 01/03/21 06:21 Home Medications Medication Instructions Recorded Confirmed Type atorvastatin 10 mg tablet 10 mg PO HS 12/29/18 08/17/23 History fluticasone 250 mcg-salmeterol 50 1 puffs inhalation BID 12/29/18 08/17/23 History mcg/dose blistr powdr for inhalation (Advair Diskus) food supplemt, lactose-reduced 1 ea PO QAM 12/29/18 08/17/23 History (Ensure oral liquid) levothyroxine 88 mcg tablet 88 mcg PO QAM 12/21/20 08/17/23 History metoprolol succinate 50 mg 75 mg PO QPM 12/21/20 08/17/23 History tablet,extended release 24 hr tamsulosin 0.4 mg capsule 0.4 mg PO DAILY 90 days #90 caps 08/10/22 08/17/23 Rx albuterol sulfate 90 mcg/actuation 2 puff inhalation Q6H PRN sob or 08/17/23 08/17/23 History aerosol inhaler wheezing Past Med/Surg History Problem List Encounter for pre-operative examination Left leg swelling (Acute) Left leg pain (Acute) Closed left ankle fracture (Acute) Trimalleolar fracture of ankle, closed Squamous cell carcinoma of skin of face (Acute) Nocturia (Acute) Neoplasm of uncertain behavior of skin (Acute) Degenerative joint disease of left hip (Acute) Incomplete emptying of bladder (Acute) Gross hematuria (Acute) Enlarged prostate with lower urinary tract symptoms (LUTS) (Acute) Elevated PSA (Acute) BPH (benign prostatic hyperplasia) (Acute) Arthritis (Acute) History of basal cell carcinoma (Acute) Thyroid cancer (Acute) ~1969's Medical History Pacemaker Follows with Dr Hernadez. [employer] device, last checked ~September 2020. Hypertension Hyperlipidemia Asthma well controlled Tachy-fe syndrome (~2015) Actinic keratosis BPH (benign prostatic hyperplasia) Osteoarthritis Hx of colonic polyp History of esophageal dilatation Schatzki's ring Surgical History History of cataract surgery right History of total hip arthroplasty (~2017) Left hip History of bowel resection r/t colon polyps History of colonoscopy History of esophagogastroduodenoscopy (EGD) S/P cardiac pacemaker procedure (~09/2015) History of thyroidectomy, total S/P Mohs surgery for basal cell carcinoma Family History Other Cancer Hypertension No family history of adverse response to anesthesia Social History Smoking Status: Never smoker Second Hand Exposure: No; Do You Dip or Chew Tobacco: No; Hx Alcohol Use: No Hx Substance Use: No Preferred Language: Lithuanian Communication Ability: Effective Matrix Bath Operator Required: No Beliefs That Will Affect Care: None Current Living Situation: Spouse Other Information That Helps Us Care for You: No Feels Safe at Home: Yes Assistive Devices: Cane and Denture - Upper Review of Systems Review of Systems: At least ten systems reviewed and negative except as noted in the HPI. Physical Exam Physical Exam: General Appearance: WD/WN, vitals as above, NAD, sitting up in bed, pleasantly confused Head: normocephalic, atraumatic Eyes: normal inspection, PERRL, conjunctivae normal, anicteric sclerae ENT: external ear and nose normal, oropharynx normal Neck: normal visual inspection, trachea midline, no thyromegaly Respiratory: normal respiratory effort, lungs clear to auscultation, no wheeze, rales, rhonchi. No accessory muscle use Cardiovascular: regular rate, rhythm, no murmur, normal peripheral pulses, no BLE edema. Vessels: no JVD Chest: normal inspection of chest Abdomen/GI: normal bowel sounds, soft, nontender, no hepatosplenomegaly Extremities/Musculoskeletal: no cyanosis or clubbing, extremities motor strength 5/5, + LLE in splint, + NVI Neurologic: PERRL, EOMI, accommodation nl, no face palsy, no dysarthria, CN's II-XI intact bilaterally and moves all extremities Psychiatric: A+Ox person and place, euthymic affect Skin: no rashes, normal color, warm/dry Results & Data Results & Data Vital Signs (Past 12 Hours) Vital Signs Temp Pulse Resp BP Pulse Ox O2 Del Method 08/17/23 11:35 36.8 C 70 18 172/85 H 97 Room Air Laboratory Results Short CBC 08/17/23 Range/Units 12:57 WBC 6.73 (4.8-10.8) K/ul Hgb 12.9 L (14.0-18.0) g/dl Hct 38.2 L (42.0-52.0) % Plt Count 187 (130-400) K/uL BMP 08/17/23 12:57 Sodium 136 Potassium 4.6 Chloride 104 Carbon Dioxide 24 BUN 21 Creatinine 1.12 Glucose 101 H Calcium 9.7 Diagnostic Findings Ankle X-Ray 08/17/23 11:46 XR ankle LT min 3V routine, XR foot LT min 3V routine CLINICAL HISTORY: twisted, pain. left ankle and foot pain. COMPARISON STUDY: None. FINDINGS: There is a mildly displaced oblique fracture within the distal left fibula. This demonstrates up to 3 mm of lateral displacement. No dislocation. Small nondisplaced fractures are noted at the medial and posterior malleolus. There is diffuse soft tissue swelling within the left ankle and foot. No fracture or dislocation within the left foot. The Lisfranc joint is intact. IMPRESSION: 1. Trimalleolar left ankle fracture as described above. No dislocation. 2. No acute fractures within the left foot. ACT 112: Negative or not required by law. Electronically signed by: Alejandro Cardoso M.D. 08/17/2023 12:58 PM Foot X-Ray 08/17/23 11:46 XR ankle LT min 3V routine, XR foot LT min 3V routine CLINICAL HISTORY: twisted, pain. left ankle and foot pain. COMPARISON STUDY: None. FINDINGS: There is a mildly displaced oblique fracture within the distal left fibula. This demonstrates up to 3 mm of lateral displacement. No dislocation. Small nondisplaced fractures are noted at the medial and posterior malleolus. There is diffuse soft tissue swelling within the left ankle and foot. No fracture or dislocation within the left foot. The Lisfranc joint is intact. IMPRESSION: 1. Trimalleolar left ankle fracture as described above. No dislocation. 2. No acute fractures within the left foot. ACT 112: Negative or not required by law. Electronically signed by: Alejandro Cardoso M.D. 08/17/2023 12:[address] 08/17/23 12:[address] DOSE: 488.4 mGy.cm HISTORY: Left ankle pain. fx, communuted TECHNIQUE: Multiaxial CT images of the left ankle were performed and reformatted in the sagittal and coronal plane without the use of contrast. A dose lowering technique was utilized adhering to the principles of ALARA. COMPARISON: Left ankle radiograph 08/17/2023. FINDINGS: There is confirmation of a trimalleolar left ankle fracture. The medial and posterior malleoli fractures are nondisplaced. The distal fibular fracture demonstrates up to 3 mm of lateral and posterior displacement. No dislocation. The calcaneus appears intact. There are small plantar and posterior calcaneal spurs noted. Subcutaneous edema noted within the left ankle. IMPRESSION: Confirmation of the trimalleolar left ankle fracture as above. No dislocation. ACT 112: Negative or not required by law. Electronically signed by: Alejandro Cardoso M.D. 08/17/2023 1:15 PM ECG Additional Comments: EKG pending Code Status & VTE Plan VTE Prophylaxis Plan VTE Prophylaxis will be ordered: Yes Supervising Physician Co-Signing Physician Notes Patient seen and examined independently. Discussed with above provider Patient presents with fall 2 days back X-ray of the ankle found to have trimalleolar fracture on the left leg Patient denies any pain or discomfort at the moment He was walking on the foot for past 2 days Plan for surgical intervention tomorrow by orthopedic. Pain control with Tylenol I have reviewed the advanced practitioner's documentation, and I agree with, and take responsibility for the plan of care I spent a total of 25 minutes coordinating, documenting, and providing care for this patient excluding time spent in the performance of separately billed services. All of the aforementioned completed while collaborating with the assigned advanced practitioner for a full treatment plan
[2023-08-17] MEDS ORDERED: ALBUTEROL HFA 8 GM INHALER INH PRN (13:24)
[2023-08-17 13:25] LABS: BUN Creatinine Ratio 18.8 (10-20); Calcium 9.7 mg/dl (8.6-10.3); Creatinine Clr Calc Pharmacy 43.3 ml/min; Est GFR (African American) 67.1 ml/min; Est GFR (Non-African American) 57.9 ml/min; Potassium 4.6 mmol/L (3.5-5.1)
[2023-08-17 13:40] LABS: Partial Thromboplastin Ratio 1.1; Partial Thromboplastin Time 29 Seconds (21-31); Prothrombin Time 10.7 Seconds (9.0-12.0)
--- NOTE | 2023-08-17 14:45 | XRay Report ---
XR chest 1V portable HISTORY: preop COMPARISON: Chest 12/17/2005. FINDINGS: No pneumothorax. No pleural effusions. Left basilar linear densities favor subsegmental ate lectasis or scarring. Otherwise, the lungs are clear. Calcifications within the aortic knob. The card iac silhouette remains mildly enlarged. Is left-sided dual-chamber pacemaker. IMPRESSION: Stable mild cardiomegaly. Otherwise, no acute process within the chest. ACT 112: Negative or not required by law. Electronically signed by: Alejandro Cardoso M.D. 08/17/2023 2:44 PM
[2023-08-17] MEDS ORDERED: POLYETHYLENE (MIRALAX) 17 GM PACK PO PRN (17:35)
[2023-08-17] MEDS ORDERED: ONDANSETRON INJ 2 MG/ML 2 ML VIAL IV PRN (17:35)
[2023-08-17] MEDS: ACETAMINOPHEN 500 MG TAB PO SCH (18:35)
[2023-08-17] MEDS: METOPROLOL SUCC 25MG EXT REL TAB PO SCH (20:54)
[2023-08-17] MEDS: ATORVASTATIN 10 MG TAB PO SCH (20:54)
--- OUTSIDE RECORDS SUMMARY | 2023-08-17 22:41 | External Medical Summary | Summary of Care ---
Author Name Unknown Organization [facility] Address [address] [place] [address] Phone [phone] Care Team Providers Care Shale Miner Name Role Phone Ferdinand Gomez MD Primary Care Provider + Encounter Details Date Type Department Care Team (Late st Contact Info) Description 04/02/2023 Result Scan Unspecified Department Mika Hernadez MD [address] [place] [address] <No scans attached> Allergies Active Allergy Reactions Criticality Noted Date Comments Meloxicam 02/09/2019 Had bleeding Pantoprazole Rash 09/10/2011 documented as of this encounter (statuses as of 04/02/2023) Medications Medication Sig Dispensed Refills Start Date End Date Status AYR SALINE NASAL gel As needed as directed 0 02/01/2016 Active amoxicillin (AMOXIL) 500 MG Capsule Take 4 Capsules by mouth as needed (prior to dental work d/t hip replacement). 3 10/27/2017 Active hypertonic saline rinse (ANTOINETTE MED) PACK Administer 1 Each into nostril as needed for Rhinitis. 0 12/17/2018 Active Boost Oral Liquid Take by mouth daily. 0 Active Fluticasone-Salmeter ol 100-50 MCG/ACT Inhalation Aerosol Powder Breath Activated (Advair Diskus) Inhale 1 Puff by mouth in the morning and 1 Puff before bedtime. 180 Each 3 05/15/2022 Active Albuterol Sulfate HFA 108 (90 Base) MCG/ACT Inhalation Aerosol SolutionIndications: Mild persistent asthma without complication INHALE 2 PUFFS BY MOUTH EVERY 4 HOURS FOR COUGH, WHEEZE, CHEST TIGHTNESS, SHORTNESS OF BREATH AND PRIOR TO EXCERCISE 18 g 5 06/26/2022 Active Tamsulosin HCl 0.4 MG Oral Capsule (Flomax)Indications: BPH with obstruction/lower urinary tract symptoms Take 1 Capsule by mouth in the morning. 90 Capsule 3 06/26/2022 Active Probiotic Daily Oral Capsule Take 1 Capsule by mouth in the morning. 0 Active Levothyroxine Sodium 88 MCG Oral Tablet (Levoxyl) Take 1 Tablet by mouth daily first thing in the morning. (at least 30 min prior to breakfast or other meds) 90 Tablet 0 03/04/2023 Active Atorvastatin Calcium 10 MG Oral Tablet (Lipitor)Indications :Dyslipidemia, goal LDL below 100 One pill by mouth once a day 90 Tablet 1 03/12/2023 Active Metoprolol Succinate ER 50 MG Oral Tablet Extended Release 24 Hour (toPROL XL)Indications:HTN, goal below 150/90 TAKE 1 AND 1/2 TABLETS BY MOUTH ONE TIME DAILY 135 Tablet 3 03/27/2023 Active documented as of this encounter (statuses as of 04/02/2023) Active Problems Problem Noted Date Diagnosed Date History of left hip replacement 07/03/2017 History of thyroid cancer 12/11/2016 Deviated nasal septum 11/19/2016 Primary osteoarthritis of left hip 11/13/2016 HTN, goal below 150/90 11/10/2015 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 10/12/2015 Schatzki's ring 11/03/2012 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 12/25/2010 Elevated prostate specific antigen (PSA) 011 ADVANCE DIRECTIVE INFORMATION 07/21/2004 Overview: Yes, Patient instructed to provide copy of advance directive for provider to review and to be scanned into Electronic Medical Record Allergic rhinitis 07/22/2002 Asthma, mild persistent 07/22/2002 POSTSURGICAL HYPOTHYROID documented as of this encounter (statuses as of 04/02/2023) Resolved Problems Problem Noted Date Diagnosed Date Resolved Date Chronic kidney disease, stage 3a 05/02/2020 12/21/2021 Overview: Per CKD protocol 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 Dyslipidemia, goal LDL below 160 10/07/2007 03/10/2009 Overview: Per Lipid Taxonomy. TEMPOROMANDIBULAR JOINT DISO RDERS, UNSPECIFIED 08/03/2005 11/13/2016 Overview: 10/11/[address] Ayad Frias Joint Findings: --Crepitious bilateral of the TMJ Radiograph results: --early DJD with normal joint finds with age factor Hyperplasia of prostate with out lower urinary tract symptoms (LUTS) 02/02/2003 12/21/2021 Dysphagia 12/14/2002 10/09/2010 Overview: ICD-10 update of inactive term BENIGN NEOPLASM LG BOWEL 11/16/2002 Overview: adenomatous polyps colon- repeat 10/28 Colonoscopy 05/01: Impression: Diminutive polyp in ascending colon. Polyp remnant at site of prior polypectomy that was removed with cold snare and ablated using APC. Recommendation: Follow up colonoscopy in 2-3 months to examine polypectomy Site.-tubular adenoma on path Dyslipidemia, goal to be determined 07/14/2002 02/16/2009 Overview: Per Lipid Taxonomy Encounter for long-term (cur rent) use of medications 07/14/2002 08/26/2018 Overview: ICD-10 update of inactive term solar keratosis- bridge of nose 08/07/01 02/10/2002 12/11/2016 documented as of this encounter (statuses as of 04/02/2023) Immunizations Name Administration Dates Next Due COVID-19 mRNA, LNP-s, No Pre serve, 2-Dose Series (Everypost) 10/16/2021,01/10/2021,06/29/2020,06/08 COVID-19, LNP-s, No Preserve , Hiren-sucrose, Ages 12+ (Pfizer) 10/16/2021 Covid-19, Mrna, Lnp-s, Pf, B ivalent, 30 Mcg, IM, 12 yrs and above (Pfizer) 12/19/2022 H1N1 2009 Influenza, IM 04/06/2009 Pneumococcal Conjugate Vacc, 13 Valent (Prevnar) 11/03/2014 RSV Vac., Recomb, Adjuvant, PF,0.5 Ml (Arexvy) 12/26/2022 Season Influenza, Quad, PF, Adjuvanted, 65+ Yrs, IM (FLUAD) 12/03/2019 Seasonal Influenza Virus Vac cine, Unspecified Formulation 11/27/2017,11/27/2016,12/07/2015,12/11,11/24/2013,12/24/2012,12/13/2011 ,12/21/2010,12/27/2009,12/03/2008,10/2007,12/24/2006,01/09/2006 Seasonal Influenza, PF, 6 M & above, IM , (FluLaval or Fluzone) 11/24/2020,11/27/2017 Seasonal Influenza, Quadriva lent Hd (Fluzone Hd) 11/12/2022,11/23/2021 Seasonal Influenza, Quadriva lent Hd, 65+ Yrs 11/24/2020 Seasonal Influenza, Quadriva lent, No Preserve, IM 11/27/2016,12/07/2015 Seasonal Influenza, Split, I IV3, With Preserve, Inj 12/11/2014,11/24/2013,12/24/2012,12/12,12/21/2010,12/27/2009,12/03/2008 ,12/31/2007,12/24/2006,01/09/2006 12/22/2011 Seasonal Influenza, Trivalen t, Adjuvanted, 65+ yrs 12/17/2018 TD, Preservative Free 07/21/2004 TDAP (age 10 and older)(Boostrix) 11/14/2016 Varicella Zoster Vaccine (Adult) 10/13/2012 Zoster Vaccine Recombinant (Shingrix) 08/14/2021,06/12/2021 documented as of this encounter Social History Tobacco Use Types Packs/Day Years Used Date Smoking Tobacco: Never Smokeless Tobacco: Never Alcohol Use Standard Drinks/Week Comments No 0 (1 standard drink = 0.6 oz pur e alcohol) PHQ-2 Answer Date Recorded PHQ Adult Total Score 0 06/26/2022 Hunger Vital Sign Answer Date Recorded Within the past 12 months, y ou worried that your food would run out before you got the money to buy more. Never true 06/27/19 23 Within the past 12 months, t he food you bought just didn't last and you didn't have money to get more. Never true 06/26/2022 Sex and Gender Information Value Date Recorded Sex Assigned at Male 08/26/2018 1:50 PM EDT Gender Identity Male 08/26/2018 1:50 PM EDT Sexual Orientation Straight 08/26/2018 1: 50 PM EDT Job Start Date Occupation Industry Not on file Not on file Not on file documented as of this encounter Plan of Treatment Upcoming Encounters Date Type Department Care Team (Late st Contact Info) Description 07/18/2023 10:00 AM EDT Office Visit General Internal Medicine [facility] [address] [facility] [address] [place] [address] Ferdinand Gomez MD [address] [facility] [place] [address] 08/09/2023 10:00 AM EDT Cardiac Studies Cardiology, [facility] [address] [facility] [place] [address] [facility] [address] [facility] [place] [address] Health Maintenance Due Date Last Done Comments COVID-19 Vaccine ( season) 2023 12/19/2022, 12/19/2022, 01/11/2022, Additional history exists Depression Screening 06/27/2023 06/26/2022 TSH 01/03/2024 01/02/2023, 11/23, 03/27/2021, Additional history exists Albumin/Creatinine Ratio 06/02/2024 06/02/2021 DTaP,Tdap,and Td Vaccines (2 - Td or Tdap) 11/14/2026 11/14/2016, 07/21/2004, 07/21/2004 Pneumococcal Vaccine: 65+ Years Completed 11/03/2014, 01/03/1999 Zoster Vaccines Completed 08/14/2021, 05/24, 10/13/2012 Influenza Vaccine (FLU shot) Completed , 11/23/2021, 11/23/2021, Additional history exists GARDASIL-HPV IMMUNIZATION SERIES Aged Out No longer eligible based on patient's age to complete this topic Hepatitis B Aged Out No longer eligi ble based on patient's age to complete this topic MENINGOCOCCAL (MENACTRA/MENVEO) Aged Out No longer eligible based on patient's age to complete this topic documented as of this encounter Medical Devices Not on filedocumented as of this encounter Procedures Procedure Name Priority Date/Time Associated Diagnosis Comments CARDIOLOGY SCANNED RESULT 04/02/2023 documented in this encounter Results * CARDIOLOGY SCANNED RESULT (04/02/2023) 04/02/2023 Mika Hernadez MD OTHER documented in this encounter Care Teams Shale Miner Relationship Specialty Start Date End Date Ferdinand Gomez MD [address] [place] [address] PCP - General Internal Medicine 01/10/21 documented as of this encounter
--- OUTSIDE RECORDS SUMMARY | 2023-08-17 22:41 | External Medical Summary | Summary of Care ---
Author Name Unknown Organization [facility] Address [address] [place] [address] Phone [phone] Care Team Providers Care Flake Miller Helper Name Role Phone Ferdinand Gomez MD Primary Care Provider + Reason for Visit * Reason Onset Date Comments Medication Refill 05/31/2023 Encounter Details Date Type Department Care Team (Late st Contact Info) Description 05/31/2023 Refill General Internal Medicine [facility] 200 [place] [address] Ferdinand Gomez MD [address] [place] [address] Allergies Active Allergy Reactions Criticality Noted Date Comments Meloxicam 02/09/2019 Had bleeding Pantoprazole Rash 09/10/2011 documented as of this encounter (statuses as of 05/31/2023) Medications Medication Sig Dispensed Refills Start Date [...] Liquid Take by mouth daily. 0 Active Albuterol Sulfate HFA 108 (90 Base) MCG/ACT Inhalation Aerosol SolutionIndication s:Mild persistent asthma without complication INHALE 2 PUFFS BY MOUTH EVERY 4 HOURS FOR COUGH, WHEEZE, CHEST TIGHTNESS, SHORTNESS OF BREATH AND PRIOR TO EXCERCISE 18 g 5 06/26/2022 Active Tamsulosin HCl 0.4 MG Oral Capsule (Flomax)Indication s:BPH with obstruction/lower urinary tract symptoms Take 1 Capsule by mouth in the morning. 90 Capsule 3 06/26/2022 Active Probiotic Daily Oral Capsule Take 1 Capsule by mouth in the morning. 0 Active Atorvastatin Calcium 10 MG Oral Tablet (Lipitor)Indicatio ns:Dyslipidemia, goal LDL below 100 One pill by mouth once a day 90 Tablet 1 03/12/2023 Active Metoprolol Succinate ER 50 MG Oral Tablet Extended Release 24 Hour (toPROL XL)Indications:HTN , goal below 150/90 TAKE 1 AND 1/2 TABLETS BY MOUTH ONE TIME DAILY 135 Tablet 3 03/27/2023 Active Fluticasone-Salmet audrey 100-50 MCG/ACT Inhalation Aerosol Powder Breath Activated (Advair Diskus) Inhale 1 Puff by mouth in the morning and 1 Puff before bedtime. 180 Each 3 05/07/2023 Active Levothyroxine Sodium 88 MCG Oral Tablet (Levoxyl) Take 1 Tablet by mouth daily first thing in the morning. (at least 30 min prior to breakfast or other meds) 90 Tablet 0 05/31/2023 Active Levothyroxine Sodium 88 MCG Oral Tablet (Levoxyl) Take 1 Tablet by mouth daily first thing in the morning. (at least 30 min prior to breakfast or other meds) 90 Tablet 0 03/04/2023 4 Discontinue d(Refill) documented as of this encounter (statuses as of 05/31/2023) Active Problems Problem Noted Date Diagnosed Date [...] as of this encounter (statuses as of 05/31/2023) Resolved Problems Problem Noted Date Diagnosed Date [...] as of this encounter (statuses as of 05/31/2023) Immunizations Name Administration Dates Next Due COVID-19 mRNA, LNP-s, No Pre serve, 2-Dose Series ([employer]) 10/16/2021,01/10/2021,06/29/2020,06/08 COVID-19, LNP-s, No Preserve , Hiren-sucrose, [...] on file documented as of this encounter Miscellaneous Notes * Telephone Encounter - Gideon Terrell MD - 05/31/2023 3:31 PM ESTSigned Prescriptions: Disp Refills Levothyroxine Sodium 88 MCG Oral Tablet (L*90 Tab*0 Sig: Take 1 Tablet by mouth daily first thing in the morning. (at least 30 min prior to breakfast or other meds) Authorizing Provider: GIDEON TERRELL * Telephone Encounter - Lizette Coronado LPN - 05/31/2023 1:59 PM ESTPending Prescriptions: Disp Refills Levothyroxine Sodium 88 MCG Oral Tablet (L*90 Tab*0 Sig: Take 1 Tablet by mouth daily first thing in the morning. (at least 30 min prior to breakfast or other meds) * Telephone Encounter - Trish Diallo, GRISELDA - 05/31/2023 1:42 PM EST Did you pend patient's preferred pharmacy and medication before forwarding?yes Pharmacy: [facility] [id number] [place] [address] Pending Prescriptions: Disp Refills Levothyroxine Sodium 88 MCG Oral Tablet (*90 Tab*0 Sig: Take 1 Tablet by mouth daily first thing in the morning. (at least 30 min prior to breakfast or other meds) Last Visit: 01/08/2023 (in office), Visit date not found (telemedicine) Next Visit: 07/18/2023 If no future appointments scheduled, and last appointment is greater than a year ago, please schedule patient for a follow-up appointment Last date the medication was ordered: 03/04/23 Is this request for a controlled substance?No Urine Drug Screen:No results found for this or any previous visit. Patient Phone Numbers Labs: Lab Results Component Value Date/Time CREAT 1.2 01/02/2023 08:20 AM CREAT 1.2 04/08/2020 10:33 AM CREAT 0.9 06/24/1996 12:36 PM POTASSIUM 5.1 01/02/2023 08:20 AM POTASSIUM 4.5 04/08/2020 10:33 AM POTASSIUM 4.1 06/24/1996 12:36 PM TSH 0.90 01/02/2023 08:20 AM TSH 0.31 10/07/2019 12:41 PM LDLCALC 69 01/02/2023 08:20 AM LDLCALC 81 10/07/2019 12:41 PM LDLCALC 191. () 06/26/1996 09:28 AM LDLDIRECT NOT APPLICABLE 10/07/2019 12:41 PM LDLDIRECT 94 05/22/2017 10:25 AM ALT 17 01/02/2023 08:20 AM ALT 24 10/07/2019 12:41 PM ALT 30 06/24/1996 12:36 PM documented in this encounter Plan of Treatment Upcoming Encounters Date Type Department Care Team (Late st Contact Info) Description 07/18/2023 10:00 AM EDT Office Visit General Internal Medicine [facility] 200 [facility] [place] [address] Ferdinand Gomez MD 200 [facility] [place] [address] 08/09/2023 10:00 AM EDT Cardiac Studies Cardiology, [facility] 132 [facility] [place] [address] [place], [facility] 132 [facility] [place] [address] Health Maintenance Due Date Last Done Comments [...] Not on filedocumented as of this encounter Care Teams Flake Miller Helper Relationship Specialty Start Date End Date Ferdinand Gomez MD 200 [facility] [place] [address] PCP - General Internal Medicine 01/10/21 documented as of this encounter
--- OUTSIDE RECORDS SUMMARY | 2023-08-17 22:41 | External Medical Summary | Summary of Care ---
Author Name Unknown Organization [facility] Address [address] [place] [address] Phone [phone] Care Team Providers Care Bilingual Loan Processor Name Role Phone Ferdinand Gomez MD Primary Care Provider + Encounter Details Date Type Department Care Team (Late st Contact Info) Description 08/05/2023 Result Scan Unspecified Department Mika Hernadez MD [address] [place] [address] <No scans attached> Allergies Active Allergy Reactions Criticality Noted Date Comments Meloxicam 02/09/2019 Had bleeding Pantoprazole Rash 09/10/2011 documented as of this encounter (statuses as of 08/05/2023) Medications Medication Sig Dispensed Refills Start Date [...] TIME DAILY 135 Tablet 3 03/27/2023 Active Fluticasone-Salmeter ol 100-50 MCG/ACT Inhalation Aerosol Powder Breath Activated (Advair Diskus) Inhale 1 Puff by mouth in the morning and 1 Puff before bedtime. 180 Each 3 05/07/2023 Active Levothyroxine Sodium 88 MCG Oral Tablet (Levoxyl) Take 1 Tablet by mouth daily first thing in the morning. (at least 30 min prior to breakfast or other meds) 90 Tablet 0 05/31/2023 Active documented as of this encounter (statuses as of 08/05/2023) Active Problems Problem Noted Date Diagnosed Date [...] as of this encounter (statuses as of 08/05/2023) Resolved Problems Problem Noted Date Diagnosed Date [...] as of this encounter (statuses as of 08/05/2023) Immunizations Name Administration Dates Next Due COVID-19 mRNA, LNP-s, No Pre serve, 2-Dose Series ([employer]) 10/16/2021,01/10/2021,06/29/2020,06/08 COVID-19, LNP-s, No Preserve , Hiren-sucrose, [...] Care Team (Late st Contact Info) Description 02/07/2024 8:40 AM EST Laboratory Laboratory [facility] 200 [place] [place] [address] [facility] [address] [facility] [place] [address] 02/14/2024 9:40 AM EST Office Visit General Internal Medicine [facility] [place] 200 [facility] [place] [address] Ferdinand Gomez MD 200 [facility] [place] [address] Health Maintenance Due Date Last Done Comments COVID-19 Vaccine ( season) 2023 12/19/2022, 12/19/2022, 01/11/2022, Additional history exists TSH 01/03/2024 01/02/2023, 11/23, 03/27/2021, Additional history exists Albumin/Creatinine Ratio 06/02/2024 06/02/2021 Depression Screening 07/17/2024 07/18/2023 DTaP,Tdap,and Td Vaccines (2 - Td or [...] Date/Time Associated Diagnosis Comments CARDIOLOGY SCANNED RESULT 08/05/2023 documented in this encounter Results * CARDIOLOGY SCANNED RESULT (08/05/2023) 08/05/2023 Mika Hernadez MD OTHER documented in this encounter Care Teams Bilingual Loan Processor Relationship Specialty Start Date End Date Ferdinand Gomez MD 200 [place] [address] PCP - General Internal Medicine 01/10/21 documented as of this encounter
--- OUTSIDE RECORDS SUMMARY | 2023-08-17 22:41 | External Medical Summary | Summary of Care ---
Author Name Unknown Organization [facility] Address [address] [place] [address] Phone [phone] Care Team Providers Care Herbicide Service Sales Representative Name Role Phone Ferdinand Gomez MD Primary Care Provider + Reason for Visit * Reason Onset Date Comments Appointment 08/01/2023 [facility] appointment Encounter Details Date Type Department Care Team (Late st Contact Info) Description 08/01/2023 Telephone Cardiology, [facility] 132 [place] [address] [place] [facility]er [facility] 132 [place] [address] Appointment ([facility] appointment ) Allergies Active Allergy Reactions Criticality Noted Date Comments Meloxicam 02/09/2019 Had bleeding Pantoprazole Rash 09/10/2011 documented as of this encounter (statuses as of 08/01/2023) Medications Medication Sig Dispensed Refills Start Date [...] as of this encounter (statuses as of 08/01/2023) Active Problems Problem Noted Date Diagnosed Date [...] as of this encounter (statuses as of 08/01/2023) Resolved Problems Problem Noted Date Diagnosed Date [...] as of this encounter (statuses as of 08/01/2023) Immunizations Name Administration Dates Next Due COVID-19 mRNA, LNP-s, No Pre serve, 2-Dose Series ([employer]) 10/16/2021,01/10/2021,06/29/2020,06/08 COVID-19, LNP-s, No Preserve , Hiren-sucrose, [...] encounter Miscellaneous Notes * Telephone Encounter - Susan Garrison LPN - 08/01/2023 12:27 PM EDT treadalongG message sent to patient regarding [facility] appointment 08/09/2023. Patient is monitored remotely, IOC not indicated at this time. documented in this encounter Plan of Treatment Upcoming Encounters Date Type Department Care Team (Late st Contact Info) Description 08/09/2023 10:00 AM EDT Cardiac Studies Cardiology, [facility] 132 [facility] [place] [address] [facility] 132 [facility] [place] [address] 02/07/2024 8:40 AM EST Laboratory Laboratory [facility] [place] [address] [place] [address] Katy Herrera 200 [facility] [place] [address] 02/14/2024 9:40 AM EST Office Visit General Internal Medicine [facility] [place] 200 [facility] [place], [place] [address] Ferdinand Gomez MD 200 [place] [address] Health Maintenance Due Date Last Done Comments [...] filedocumented as of this encounter Care Teams Herbicide Service Sales Representative Relationship Specialty Start Date End Date Ferdinand Gomez MD 200 [facility] [place], [place] [address] PCP - General Internal Medicine 01/10/21 documented as of this encounter
--- OUTSIDE RECORDS SUMMARY | 2023-08-17 22:41 | External Medical Summary | Summary of Care ---
Author Name Unknown Organization [facility] Address [address] [place] [address] Phone [phone] Care Team Providers Care Blood Bank Assistant Name Role Phone Ferdinand Gomez MD Primary Care Provider + Reason for Visit * Reason Comments eRx-Medication Refill Encounter Details Date Type Department Care Team (Late st Contact Info) Description 03/23/2023 Refill Cardiology, [facility] [address] [place] [address] Mika Hernadez MD [address] [place] [address] HTN, goal below 150/90 Allergies Active Allergy Reactions Criticality Noted Date Comments Meloxicam 02/09/2019 Had bleeding Pantoprazole Rash 09/10/2011 documented as of this encounter (statuses as of 03/27/2023) Medications Medication Sig Dispensed Refills Start Date [...] Liquid Take by mouth daily. 0 Active Fluticasone-Salme terol 100-50 MCG/ACT Inhalation Aerosol Powder Breath Activated (Advair Diskus) Inhale 1 Puff by mouth in the morning and 1 Puff before bedtime. 180 Each 3 05/15/2022 Active Albuterol Sulfate HFA 108 (90 Base) MCG/ACT Inhalation Aerosol SolutionIndicatio ns:Mild persistent asthma without complication INHALE 2 PUFFS BY MOUTH EVERY 4 HOURS FOR COUGH, WHEEZE, CHEST TIGHTNESS, SHORTNESS OF BREATH AND PRIOR TO EXCERCISE 18 g 5 06/26/2022 Active Tamsulosin HCl 0.4 MG Oral Capsule (Flomax)Indicatio ns:BPH with obstruction/lower urinary tract symptoms Take 1 [...] Active Atorvastatin Calcium 10 MG Oral Tablet (Lipitor)Indicati ons:Dyslipidemia, goal LDL below 100 One pill by mouth once a day 90 Tablet 1 03/12/2023 Active Metoprolol Succinate ER 50 MG Oral Tablet Extended Release 24 Hour (toPROL XL)Indications:HT N, goal below 150/90 TAKE 1 AND 1/2 TABLETS BY MOUTH ONE TIME DAILY 135 Tablet 3 03/27/2023 Active Metoprolol Succinate ER 50 MG Oral Tablet Extended Release 24 Hour (toPROL XL)Indications:HT N, goal below 150/90 TAKE 1 AND 1/2 TABLETS BY MOUTH ONE TIME DAILY 135 Tablet 3 04/09/2022 4 Discontinued documented as of this encounter (statuses as of 03/27/2023) Active Problems Problem Noted Date Diagnosed Date [...] as of this encounter (statuses as of 03/27/2023) Resolved Problems Problem Noted Date Diagnosed Date [...] as of this encounter (statuses as of 03/27/2023) Immunizations Name Administration Dates Next Due COVID-19 mRNA, LNP-s, No Pre serve, 2-Dose Series ([employer]) 10/16/2021,01/10/2021,06/29/2020,06/08 COVID-19, LNP-s, No Preserve , Hiren-sucrose, [...] encounter Miscellaneous Notes * Telephone Encounter - Td Smith PA-C - 03/27/2023 8:55 AM ESTSigned Prescriptions: Disp Refills Metoprolol Succinate ER 50 MG Oral Tablet *135 Ta*3 Sig: TAKE 1 AND 1/2 TABLETS BY MOUTH ONE TIME DAILY Authorizing Provider: TD SMITH * Telephone Encounter - Erin Thomas LPN - 03/27/2023 8:37 AM ESTPending Prescriptions: Disp Refills Metoprolol Succinate ER 50 MG Oral Tablet *135 Ta*3 Sig: TAKE 1 AND 1/2 TABLETS BY MOUTH ONE TIME DAILY * Telephone Encounter - Erin Thomas LPN - 03/27/2023 8:37 AM EST Pending Prescriptions: Disp Refills Metoprolol Succinate ER 50 MG Oral Tablet*135 Ta*3 Sig: TAKE 1 AND 1/2 TABLETS BY MOUTH ONE TIME DAILY documented in this encounter Plan of Treatment Upcoming Encounters Date Type Department Care Team (Late st Contact Info) Description 07/18/2023 10:00 AM EDT Office Visit General Internal Medicine [facility] 200 [facility] [place] [address] Ferdinand Gomez MD 200 [facility] [place] [address] 08/09/2023 10:00 AM EDT Cardiac Studies Cardiology, [facility] 132 [facility] [place] [address] [place] [facility] 132 [facility] [place] [address] Health Maintenance Due Date Last Done Comments COVID-19 Vaccine (2022- season) 2023 12/19/2022, 12/19/2022, 01/11/2022, Additional history [...] Not on filedocumented as of this encounter Visit Diagnoses Diagnosis HTN, goal below 150/90 documented in this encounter Care Teams Blood Bank Assistant Relationship Specialty Start Date End Date Ferdinand Gomez MD [address] [place] [address] PCP - General Internal Medicine 01/10/21 documented as of this encounter
--- OUTSIDE RECORDS SUMMARY | 2023-08-17 22:41 | External Medical Summary | Summary of Care ---
Author Name Unknown Organization [facility] Address [address] [place] [address] Phone [phone] Care Team Providers Care Consulting Sales Manager Name Role Phone Ferdinand Gomez MD Primary Care Provider + Reason for Visit * Reason Onset Date Comments Appointment 08/01/2023 [facility] appointment Encounter Details Date Type Department Care Team (Late st Contact Info) Description 08/01/2023 Telephone Cardiology, [facility] 132 [facility] [place] [address] [facility] 132 [place] [address] Appointment ([facility] appointment ) Allergies Active Allergy Reactions [...] mRNA, LNP-s, No Pre serve, 2-Dose Series ([employer]) 10/16/2021,01/10/2021,06/29/2020,06/08 COVID-19, LNP-s, No Preserve , Hiren-sucrose, [...] Garrison LPN - 08/01/2023 12:27 PM EDT RegenaStemG message sent to patient regarding [facility] appointment 08/09/2023. Patient is monitored remotely, IOC not indicated at this time. documented in this encounter Plan of Treatment Upcoming Encounters Date Type Department Care Team (Late st Contact Info) Description 08/09/2023 10:00 AM EDT Cardiac Studies Cardiology, [facility] 132 [facility] [place] [address] [facility] 132 [facility] [place] [address] 02/07/2024 8:40 AM EST Laboratory Laboratory [place] [address] [place] [address] Katy Herrera 200 [place] [address] 02/14/2024 9:40 AM EST Office Visit General Internal Medicine [facility] [place] 200 [facility] [place], [place] [address] Ferdinand Gomez MD 200 [facility] [place] [address] Health Maintenance Due Date Last Done Comments [...] filedocumented as of this encounter Care Teams Consulting Sales Manager Relationship Specialty Start Date End Date Ferdinand Gomez MD 200 [facility] [place], [place] [address] PCP - General Internal Medicine 01/10/21 documented as of this encounter
--- OUTSIDE RECORDS SUMMARY | 2023-08-17 22:41 | External Medical Summary | Summary of Care ---
Author Name Unknown Organization [facility] Address [address] [place] [address] Phone [phone] Care Team Providers Care Rn Urology Name Role Phone Ferdinand Gomez MD Primary Care Provider + Reason for Visit * Reason Comments Follow Up 6 month return. Pt d enied any new concerns Encounter Details Date Type Department Care Team (Late st Contact Info) Description 07/18/2023 10:00 AM EDT Office Visit General Internal Medicine [facility] [address] [place] [address] Ferdinand Gomez MD [address] [place] [address] HTN, goal below 150/90*; Mixed hyperlipidemia; Tachy-fe syndrome (HCC); POSTSURGICAL HYPOTHYROID; BPH with obstruction/lower urinary tract symptoms Allergies Active Allergy Reactions Criticality Noted Date Comments Meloxicam 02/09/2019 Had bleeding Pantoprazole Rash 09/10/2011 documented as of this encounter (statuses as of 07/18/2023) Medications Medication Sig Dispensed Refills Start Date [...] as of this encounter (statuses as of 07/18/2023) Active Problems Problem Noted Date Diagnosed Date [...] as of this encounter (statuses as of 07/18/2023) Resolved Problems Problem Noted Date Diagnosed Date [...] inactive term solar keratosis- bridge of nose 502/10/2002 12/11/2016 documented as of this encounter (statuses as of 07/18/2023) Immunizations Name Administration Dates Next Due COVID-19 mRNA, LNP-s, No Pre serve, 2-Dose Series ([place]) 10/16/2021,01/10/2021,06/29/2020,06/08 COVID-19, LNP-s, No Preserve , Hiren-sucrose, [...] Date Smoking Tobacco: Never Smokeless Tobacco: Never Tobacco Cessation:Counseling Given: Not Answered Alcohol Use Standard Drinks/Week Comments No 0 [...] on file documented as of this encounter Last Filed Vital Signs Vital Sign Reading Time Taken Comments Blood Pressure 124/70 07/18/2023 9:48 AM EDT Pulse 66 07/18/2023 9:48 AM EDT Temperature 35 C (95 F) 07/18/2023 9:48 AM EDT Respiratory Rate - - Oxygen Saturation 99% 07/18/2023 9:48 AM EDT Inhaled Oxygen Concentration - - Weight 77.2 kg (170 lb 3.2 oz) 07/18/2023 9:48 A M EDT Height 170.2 cm (5' 7") 07/18/2023 9:48 AM EDT Body Mass Index 26.66 07/18/2023 9:48 AM EDT documented in this encounter Progress Notes * Ferdinand Gomez MD - 07/18/2023 10:19 AM EDT Chief Complaint Patient presents with Follow Up 6 month return. Pt denied any new concerns SUBJECTIVE: Brendan Hayes is a 87 year old male with PMH as below who presents for follow up hypothyroidism, htn, tachy-fe. No cp, sob ,griffin, feels good. Mood is good. No n/v/d. No falls. 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 3 hypertonic saline rinse (ANTOINETTE MED) PACK Administer 1 Each into nostril as needed for Rhinitis. Boost Oral Liquid Take by mouth daily. Albuterol Sulfate HFA 108 (90 Base) MCG/ACT Inhalation Aerosol Solution INHALE 2 PUFFS BY MOUTH EVERY 4 HOURS FOR COUGH, WHEEZE, CHEST TIGHTNESS, SHORTNESS OF BREATH AND PRIOR TO EXCERCISE 18 g 5 Tamsulosin HCl 0.4 MG Oral Capsule (Flomax) Take 1 Capsule by mouth in the morning. 90 Capsule 3 Probiotic Daily Oral Capsule Take 1 Capsule by mouth in the morning. Atorvastatin Calcium 10 MG Oral Tablet (Lipitor) One pill by mouth once a day 90 Tablet 1 Metoprolol Succinate ER 50 MG Oral Tablet Extended Release 24 Hour (toPROL XL) TAKE 1 AND 1/2 TABLETS BY MOUTH ONE TIME DAILY 135 Tablet 3 Fluticasone-Salmeterol 100-50 MCG/ACT Inhalation Aerosol Powder Breath Activated (Advair Diskus) Inhale 1 Puff by mouth in the morning and 1 Puff before bedtime. 180 Each 3 Levothyroxine Sodium 88 MCG Oral Tablet (Levoxyl) Take 1 Tablet by mouth daily first thing in the morning. (at least 30 min prior to breakfast or other meds) 90 Tablet 0 No current facility-administered medications for this visit. Review of patient's allergies indicates: Allergen Reactions Meloxicam Had bleeding Pantoprazole Rash Health Maintenance Due Topic Date Due COVID-19 Vaccine (2022- season) 2023 ROS: CONSTITUTIONAL: No change in weight, No weakness, and No fevers, sweats, or chills EYE: No recent significant change in vision, No eye pain, redness, discharge, and No diplopia EARS: No ear pain, No drainage, No tinnitus or vertigo, and No recent change in hearing PULMONARY: No cough, sputum, or hemoptysis, No wheezing, No rales, No shortness of breath, and No recent change in breathing CARDIOVASCULAR: No chest pain, No shortness of breath, No dyspnea on exertion, No orthopnea, No paroxysmal nocturnal dyspnea, No edema, No palpitations, and No syncope GASTROINTESTINAL: No abdominal pain, No change in bowel habits, No significant heartburn, No significant change in appetite, No nausea, vomiting, diarrhea, or constipation, No hematemesis, No blood in stools or black tarry stools, No abdominal bloating or early satiety, and No dysphagia EXTREMITIES: No pain, redness or swelling on the joints SKIN/INTEGUMENTARY: No edema, No rash, and No itching ALL OTHER SYSTEMS NEGATIVE I reviewed social, PMH, PSH, and family history and updated where needed. Social History Socioeconomic History Marital status: Spouse name: Not on file Number of children: Not on file Years of education: Not on file Highest education level: Not on file Occupational History Occupation: retired Tobacco Use Smoking status: Never Smokeless tobacco: Never Substance and Sexual Activity Alcohol use: No Drug use: No Sexual activity: Yes Partners: Female Other Topics Concern Not on file Social History Narrative Not on file Social Determinants of Health Financial Resource Strain: Not on file Food Insecurity: No Food Insecurity (06/26/2022) Hunger Vital Sign Worried About Running Out of Food in the Last Year: Never true Ran Out of Food in the Last Year: Never true Transportation Needs: Not on file Physical Activity: Not on file Stress: Not on file Social Connections: Not on file Intimate Partner Violence: Not on file Housing Stability: Not on file Past Medical History: Diagnosis Date Allergic rhinitis Asthma, severity to be determined Benign neoplasm of colon 10/25 colon polyp--repeat 10/28; more in 2006 Dyslipidemia, goal LDL below 100 12/25/2010 Dyslipidemia, goal to be determined History of thyroid cancer 12/11/2016 Hyperplasia of prostate without lower urinary tract symptoms (LUTS) 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 solar keratosis- bridge of nose 07/24 Past Surgical History: Procedure Laterality Date COLONOSCOPY W/ BIOPSY (RECTUM) 01/28/08 repeat in 2 yrs COLONOSCOPY W/ SUBMUCOUS INJ 789701 polyp COLONOSCOPY, GI REFERRAL OP 12/31/05 adenomatous tissue--repeat 3 months COLONOSCOPY/REMOVE LESION [id number] polyp EGD, FLEXIBLE, DIAGNOSTIC 07/10/2011 UPPER GI ENDOSCOPY DIAGNOSTIC performed by CHARLENEpath shows benign, mild inflamation at end of esophagus neg for Barretts, EGD, FLEXIBLE, DIAGNOSTIC 02/03/2016 Schatzki ring, repeat 2 wks/ESOPHAGOGASTRODUODENOSCOPY (EGD), FLEXIBLE, TRANSORAL, DIAGNOSTIC performed by Ivan Ponce MD at ENDOSCOPY [facility] EGD, FLEXIBLE, DIAGNOSTIC 02/22/2016 acid reflux on bx, Schatzki ring, HH/ESOPHAGOGASTRODUODENOSCOPY (EGD), FLEXIBLE, TRANSORAL, DIAGNOSTIC performed by Ivan Ponce MD at ENDOSCOPY [facility] EGD, FLEXIBLE, DIAGNOSTIC 03/20/2016 Schatzki ring, hiatal hernia, repeat 6 wks/ESOPHAGOGASTRODUODENOSCOPY (EGD), FLEXIBLE, TRANSORAL, DIAGNOSTIC performed by Ivan Ponce MD at ENDOSCOPY [facility] EGD, FLEXIBLE, DIAGNOSTIC 05/16/2016 acid reflux on bx, Schatzki ring, HH, gastric polyps/ESOPHAGOGASTRODUODENOSCOPY (EGD), FLEXIBLE, TRANSORAL, DIAGNOSTIC performed by Ivan Ponce MD at ENDOSCOPY [facility] EGD, FLEXIBLE, DIAGNOSTIC 10/24/2016 Schatzki ring, hiatal hernia/ESOPHAGOGASTRODUODENOSCOPY (EGD), FLEXIBLE, TRANSORAL, DIAGNOSTIC performed by Ivan Ponce MD at ENDOSCOPY [facility] EGD, FLEXIBLE, TRANSENDOSCOPIC DILATION <30MM 05/31/09 biopsies EGD, FLEXIBLE, W/BIOPSY 06/01/2011 biopsiespath shows benign, mild inflammation at end of esophagus neg for Barretts OTHER January 2006 Right lower abdominal hernia repair PACEMAKER INSERTION PER PARTIAL COLECTOMY W/ANASTOMOSIS 12/02/06 lap[facility] [place] REMOVAL OF APPENDIX Appendectomy REMOVAL OF THYROID GLAND 1982 Thyroidectomy- papillary ca- R total /L near total thyroidectomy REPAIR INITIAL INGUINAL HERNIA REDUCIBLE AGE 5 OR MORE 1999 Inguianl hernia Repair, Dr Brizuela TOTAL HIP REPLACEMENT & PROSTHESIS Left 05/31/2017 Dr. Connell UNLISTED LAPAROSCOPY;HERNIA 02/13/06 Laparoscopic repair of right lower quadrant abdominal wall hernia with dual mesh gore-sarah Dr. Goldstein 02/13/06 Family History Problem Relation Age of Onset Neurological Disorder Mother complications of MS- Cancer Father bone Hypertension Father Arthritis Father Glaucoma Grandmother (Paternal) OBJECTIVE: PHYSICAL EXAM: BP 124/70 | Pulse 66 | Temp (!) 35 C (95 F) (Tympanic) | Ht 1.702 m (5' 7") | Wt 77.2 kg (170 lb 3.2 oz) | SpO2 99% | BMI 26.66 kg/m | BSA 1.91 m General: alert, healthy, and no distress Head: Normocephalic, No masses, lesions, tenderness or abnormalities Eye Exam: conjunctiva are pink and non-injected, sclera clear Ears: External ears normal, Canals clear then some cerumen, TM's Normal Heart: regular rate & rhythm, no murmur, no gallops, S-1 normal, and S-2 normal Lungs: normal respiratory rate and rhythm, lungs clear to auscultation Psych: normal affect, no flight of ideas or tangential thought, good eye contact, no pressured speech ASSESSMENT: I10 HTN, goal below 150/90 (primary encounter diagnosis) E78.2 Mixed hyperlipidemia I49.5 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 N40.1,N13.8 BPH with obstruction/lower urinary tract symptoms PLAN: HTN, goal below 150/90 (Primary) Cont metoprolol Mixed hyperlipidemia - COMPREHENSIVE METABOLIC PANEL; Future; Expected date: 01/17/2024 - LIPID PANEL WITH DIRECT LDL IF TG IS HIGH; Future; Expected date: 01/17/2024 - CBC WITH WBC DIFFERENTIAL; Future; Expected date: 01/17/2024 Cont lipitor Labs next ov Tachy-fe syndrome (HCC) Cont pacer checks POSTSURGICAL HYPOTHYROID - TSH; Future; Expected date: 01/17/2024 Cont levothyroxine BPH with obstruction/lower urinary tract symptoms Cont tamsulosin Follow Up: Return in about 6 months (around 01/17/2024), or if symptoms worsen or fail to improve, for Fasting Labs 2-5 Days Before Next Visit. | For: Fasting Labs 2-5 Days Before Next Visit Ferdinand Gomez MD documented in this encounter Nursing Notes * Flakita Muñoz MED ASSIST - 07/18/2023 9:50 AM EDT Chief Complaint Patient presents with Follow Up 6 month return. Pt denied any new concerns documented in this encounter Plan of Treatment Upcoming Encounters Date Type Department Care Team (Late st Contact Info) Description 08/09/2023 10:00 AM EDT Cardiac Studies Cardiology, [facility] [address] [place] [address] [place], [facility] [address] [place] [address] 02/07/2024 8:40 AM EST Laboratory Laboratory [facility] [address] [facility] [place] [id number] [facility] [address] [place] [address] 02/14/2024 9:40 AM EST Office Visit General Internal Medicine [facility] [place] [address] [facility] [place] [address] Ferdinand Gomez MD [address] [facility] [place] [address] Scheduled Orders Name Type Priority Associated Diagnoses Orde r Schedule COMPREHENSIVE METABOLIC PANEL Lab Routine Mixed hyperlipidemia Expected: 01/17/2024 (Approximate), Expires: 07/17/2024 LIPID PANEL WITH DIRECT LDL IF TG IS HIGH Lab Routine Mixed hyperlipidemia Expected: 01/17/2024, Expires: 07/17/2024 TSH Lab Routine POSTSURGICAL HYPOTHYROID Expected: 01/17/2024 (Approximate), Expires: 07/17/2024 CBC WITH WBC DIFFERENTIAL Lab Routine Mixed hyperlipidemia Expected: 01/17/2024 (Approximate), Expires: 07/17/2024 Health Maintenance Due Date Last Done Comments [...] encounter Visit Diagnoses Diagnosis HTN, goal below 150/90- Primary Mixed hyperlipidemia Tachy-fe syndrome (HCC) Sinoatrial node dysfunction 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
--- OUTSIDE RECORDS SUMMARY | 2023-08-17 22:41 | External Medical Summary | Summary of Care ---
Author Name Unknown Organization [facility] Address [address] [place] [address] Phone [phone] Care Team Providers Care Industrial Engineering Technician Name Role Phone Ferdinand Weeks MD Primary Care Provider + Reason for Visit * Reason Onset Date Comments Medication Refill 03/12/2023 Encounter Details Date Type Department Care Team (Late st Contact Info) Description 03/12/2023 Refill General Internal Medicine [facility] [address] [facility] [place] [address] Ferdinand Weeks MD [address] [place] [address] Dyslipidemia, goal LDL below 100 Allergies Active Allergy Reactions Criticality Noted Date Comments Meloxicam 02/09/2019 Had bleeding Pantoprazole Rash 09/10/2011 documented as of this encounter (statuses as of 03/12/2023) Medications Medication Sig Dispensed Refills Start Date [...] Liquid Take by mouth daily. 0 Active Metoprolol Succinate ER 50 MG Oral Tablet Extended Release 24 Hour (toPROL XL)Indications:HTN , goal below 150/90 TAKE 1 AND 1/2 TABLETS BY MOUTH ONE TIME DAILY 135 Tablet 3 04/09/2022 Active Fluticasone-Salmet audrey 100-50 MCG/ACT Inhalation Aerosol [...] a day 90 Tablet 1 03/12/2023 Active Atorvastatin Calcium 10 MG Oral Tablet (Lipitor)Indicatio ns:Dyslipidemia, goal LDL below 100 One pill by mouth once a day 90 Tablet 1 09/20/2022 3 Discontinue d(Refill) documented as of this encounter (statuses as of 03/12/2023) Active Problems Problem Noted Date Diagnosed Date [...] as of this encounter (statuses as of 03/12/2023) Resolved Problems Problem Noted Date Diagnosed Date [...] as of this encounter (statuses as of 03/12/2023) Immunizations Name Administration Dates Next Due COVID-19 mRNA, LNP-s, No Pre serve, 2-Dose Series ([employer]) 10/16/2021,01/10/2021,06/29/2020,06/08 COVID-19, LNP-s, No Preserve , Hiren-sucrose, [...] encounter Miscellaneous Notes * Telephone Encounter - Ferdinand Weeks MD - 03/12/2023 2:08 PM ESTSigned Prescriptions: Disp Refills Atorvastatin Calcium 10 MG Oral Tablet (Li*90 Tab*1 Sig: One pill by mouth once a day Authorizing Provider: FERDINAND WEEKS * Telephone Encounter - Mine Gold LPN - 03/12/2023 2:02 PM EST Pending Prescriptions: Disp Refills Atorvastatin Calcium 10 MG Oral Tablet (Li*90 Tab*1 Sig: One pill by mouth once a day * Telephone Encounter - Trish Diallo, GRISELDA - 03/12/2023 1:03 PM EST Did you pend patient's preferred pharmacy and medication before forwarding?yes Pharmacy: [id number] [id number] [facility] [place] Pending Prescriptions: Disp Refills Atorvastatin Calcium 10 MG Oral Tablet (L*90 Tab*1 Sig: One pill by mouth once a day Last Visit: 01/08/2023 (in office), Visit date not found (telemedicine) Next Visit: 07/18/2023 If no future appointments scheduled, and last appointment is greater than a year ago, please schedule patient for a follow-up appointment Last date the medication was ordered: 09/20/22 Is this request for a controlled substance?No [...] LDLCALC 81 10/07/2019 12:41 PM LDLCALC 191. (HH) 06/26/1996 09:28 AM LDLDIRECT NOT APPLICABLE 10/07/2019 12:41 PM LDLDIRECT 94 05/22/2017 10:25 AM ALT 17 01/02/2023 08:20 AM ALT 24 10/07/2019 12:41 PM ALT 30 06/24/1996 12:36 PM documented in this encounter Plan of Treatment Upcoming Encounters Date Type Department Care Team (Late st Contact Info) Description 07/18/2023 10:00 AM EDT Office Visit General Internal Medicine [facility] [address] [facility] [place] [address] Ferdinand Weeks MD [address] [facility] [place] [address] 08/09/2023 10:00 AM EDT Cardiac Studies Cardiology, [facility] [address] [facility] [place] [address] [place] [facility] [address] [facility] [place] [address] Health Maintenance Due Date Last Done Comments [...] as of this encounter Visit Diagnoses Diagnosis Dyslipidemia, goal LDL below 100 Other and unspecified hyperlipidemia documented in this encounter Care Teams Industrial Engineering Technician Relationship Specialty Start Date End Date Ferdinand Weeks MD [address] [facility] [place] [address] PCP - General Internal Medicine 01/10/21 documented as of this encounter
--- OUTSIDE RECORDS SUMMARY | 2023-08-17 22:41 | External Medical Summary | Summary of Care ---
Author Name Unknown Organization [facility] Address [address] [place] [address] Phone [phone] Care Team Providers Care Bead Machine Operator Name Role Phone Ferdinand Weeks MD Primary Care Provider + Reason for Visit * Reason Onset Date Comments Medication Refill 05/06/2023 Encounter Details Date Type Department Care Team (Late st Contact Info) Description 05/06/2023 Refill [facility] [address] [place] [address] Ferdinand Weeks MD [address] [place] [address] Allergies Active Allergy Reactions Criticality Noted Date Comments Meloxicam 02/09/2019 Had bleeding Pantoprazole Rash 09/10/2011 documented as of this encounter (statuses as of 05/07/2023) Medications Medication Sig Dispensed Refills Start Date [...] before bedtime. 180 Each 3 05/07/2023 Active Fluticasone-Salmet audrey 100-50 MCG/ACT Inhalation Aerosol Powder Breath Activated (Advair Diskus) Inhale 1 Puff by mouth in the morning and 1 Puff before bedtime. 180 Each 3 05/15/2022 4 Discontinue d(Refill) documented as of this encounter (statuses as of 05/07/2023) Active Problems Problem Noted Date Diagnosed Date [...] as of this encounter (statuses as of 05/07/2023) Resolved Problems Problem Noted Date Diagnosed Date [...] as of this encounter (statuses as of 05/07/2023) Immunizations Name Administration Dates Next Due COVID-19 mRNA, LNP-s, No Pre serve, 2-Dose Series ([employer] [place] [employer]) 10/16/2021,01/10/2021,06/29/2020,06/08 COVID-19, LNP-s, No Preserve , Hiren-sucrose, [...] Telephone Encounter - Ferdinand Weeks MD - 05/07/2023 5:49 PM ESTSigned Prescriptions: Disp Refills Fluticasone-Salmeterol 100-50 MCG/ACT Inha*180 Ea*3 Sig: Inhale 1 Puff by mouth in the morning and 1 Puff before bedtime. Authorizing Provider: FERDINAND WEEKS * Telephone Encounter - Yoko Michelle, MED ASSIST - 05/07/2023 5:12 PM EST Pending Prescriptions: Disp Refills Fluticasone-Salmeterol 100-50 MCG/ACT Inha*180 Ea*3 Sig: Inhale 1 Puff by mouth in the morning and 1 Puff before bedtime. * Telephone Encounter - Yoko Michelle MED ASSIST - 05/07/2023 5:11 PM EST Did you pend patient's preferred pharmacy and medication before forwarding?yes Pharmacy: [id number] [place] Pending Prescriptions: Disp Refills Fluticasone-Salmeterol 100-50 MCG/ACT Inh*180 Ea*3 Sig: Inhale 1 Puff by mouth in the morning and 1 Puff before bedtime. Last Visit: 01/08/2023 (in office), Visit date not found (telemedicine) Next Visit: 07/18/2023 If no future appointments scheduled, and last appointment is greater than a year ago, please schedule patient for a follow-up appointment Last date the medication was ordered: 05/15/2022 Is this request for a controlled substance?No [...] 12:41 PM ALT 30 06/24/1996 12:36 PM * Telephone Encounter - Trish Diallo, GRISELDA - 05/06/2023 2:09 PM EST Did you pend patient's preferred pharmacy and medication before forwarding?yes Pharmacy: [facility] [id number] [place] Pending Prescriptions: Disp Refills Fluticasone-Salmeterol 100-50 MCG/ACT Inh*180 Ea*3 Sig: Inhale 1 Puff by mouth in the morning and 1 Puff before bedtime. Last Visit: 01/08/2023 (in office), Visit date not found (telemedicine) Next Visit: 07/18/2023 If no future appointments scheduled, and last appointment is greater than a year ago, please schedule patient for a follow-up appointment Last date the medication was ordered: 05/15/22 Is this request for a controlled substance?No [...] AM EDT Office Visit General Internal Medicine [facility] [address] [facility] [place] [address] Ferdinand Weeks MD [address] [facility] [place] [address] 08/09/2023 10:00 AM EDT Cardiac Studies Cardiology, [facility] [address] [facility] [place] [address] [place], Pacer Clinic [facility] [address] [facility] [place] [address] Health Maintenance Due Date Last Done Comments [...] filedocumented as of this encounter Care Teams Bead Machine Operator Relationship Specialty Start Date End Date Ferdinand Weeks MD 200 [place] [address] PCP - General Internal Medicine 01/10/21 documented as of this encounter
--- OUTSIDE RECORDS SUMMARY | 2023-08-17 22:41 | External Medical Summary | Summary of Care ---
Author Name Unknown Organization [facility] Address [address] [place] [address] Phone [phone] Care Team Providers Care Staff Nurse Name Role Phone Ferdinand Weeks MD Primary Care Provider + Reason for Visit * Reason Onset Date Comments Medication Refill 03/04/2023 Encounter Details Date Type Department Care Team (Late st Contact Info) Description 03/04/2023 Refill General Internal Medicine [facility] [address] [place] [address] Ferdinand Weeks MD [address] [place] [address] Allergies Active Allergy Reactions Criticality Noted Date Comments Meloxicam 02/09/2019 Had bleeding Pantoprazole Rash 09/10/2011 documented as of this encounter (statuses as of 03/04/2023) Medications Medication Sig Dispensed Refills Start Date [...] the morning. 90 Capsule 3 06/26/2022 Active Atorvastatin Calcium 10 MG Oral Tablet (Lipitor)Indicatio ns:Dyslipidemia, goal LDL below 100 One pill by mouth once a day 90 Tablet 1 09/20/2022 Active Probiotic Daily Oral Capsule Take 1 Capsule by mouth in the morning. 0 Active Levothyroxine Sodium 88 MCG Oral Tablet (Levoxyl) Take 1 Tablet by mouth daily first thing in the morning. (at least 30 min prior to breakfast or other meds) 90 Tablet 0 03/04/2023 Active Levothyroxine Sodium 88 MCG Oral Tablet (Levoxyl) Take 1 Tablet by mouth daily first thing in the morning. 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 Cardiac pacemaker in situ 10/12/2015 [...] as of this encounter (statuses as of 03/04/2023) Resolved Problems Problem Noted Date Diagnosed Date [...] as of this encounter (statuses as of 03/04/2023) Immunizations Name Administration Dates Next Due COVID-19 mRNA, LNP-s, No Pre serve, 2-Dose Series (Clicktivated) 10/16/2021,01/10/2021,06/29/2020,06/08 COVID-19, LNP-s, No Preserve , Hiren-sucrose, Ages 12+ (Pfizer) 10/16/2021 Covid-19, Mrna, Lnp-s, Pf, B ivalent, 30 Mcg, IM, 12 yrs and above (Pfizer) 12/19/2022 H1N1 2009 Influenza, IM 04/06/2009 Pneumococcal Conjugate Vacc, 13 Valent (Prevnar) 11/03/2014 Rsv Vac., Recomb, Adjuvant, Pf,0.5 Ml (Arexvy) 12/26/2022 SEASONAL INFLUENZA, PF, 6 M & Above, IM , (FLULAVAL or FLUZONE) 11/24/2020,11/27/2017 Season Influenza, Quad, PF, Adjuvanted, 65+ Yrs, IM (FLUAD) 12/03/2019 Seasonal Influenza Virus Vac cine, Unspecified Formulation 11/27/2017,11/27/2016,12/07/2015,12/11,11/24/2013,12/24/2012,12/13/2011 ,12/21/2010,12/27/2009,12/03/2008,10/2007,12/24/2006,01/09/2006 Seasonal Influenza, Quadriva lent Hd (Fluzone Hd) [...] Telephone Encounter - Ferdinand Weeks MD - 03/04/2023 3:27 PM ESTSigned Prescriptions: Disp Refills Levothyroxine Sodium 88 MCG Oral Tablet (L*90 Tab*0 Sig: Take 1 Tablet by mouth daily first thing in the morning. (at least 30 min prior to breakfast or other meds) Authorizing Provider: FERDINAND WEEKS * Telephone Encounter - Mine Gold LPN - 03/04/2023 2:41 PM EST Pending Prescriptions: Disp Refills Levothyroxine Sodium 88 MCG Oral Tablet (L*90 Tab*0 Sig: Take 1 Tablet by mouth daily first thing in the morning. (at least 30 min prior to breakfast or other meds) * Telephone Encounter - Dylon Gallagher OSA - 03/04/2023 2:36 PM EST 90 Day Prescription Request Did you pend patient's preferred pharmacy and medication before forwarding?yes [facility]acy: [facility] [id number] [place] Pending Prescriptions: Disp Refills Levothyroxine Sodium 88 [...] appointment Last date the medication was ordered: 12/01/2022 Is this request for a controlled substance?No [...] AM EDT Office Visit General Internal Medicine [facility] [address] [facility] [place] [address] Ferdinand Weeks MD [address] [facility] [place] [address] 08/09/2023 10:00 AM EDT Cardiac Studies Cardiology, [facility] [address] [facility] [address] [address] [facility] [address] [facility] [place] [id number] Health Maintenance Due Date Last Done Comments COVID-19 Vaccine ( season) 2023 12/19/2022, 12/19/2022, 01/11/2022, Additional history exists Depression Screening 06/27/2023 06/26/2022 TSH 01/03/2024 01/02/2023, 11/23, 03/27/2021, Additional history exists Albumin/Creatinine Ratio 06/02/2024 06/02/2021 DTaP,Tdap,and Td Vaccines (2 - Td or Tdap) 11/14/2026 11/14/2016, 07/21/2004, 07/21/2004 Pneumococcal Vaccine: 65+ Years Completed 11/03/2014, 01/03/1999 Zoster Vaccines Completed 08/14/2021, 03/2 03/2021, 10/13/2012 Influenza Vaccine (FLU shot) Completed , [...] filedocumented as of this encounter Care Teams Staff Nurse Relationship Specialty Start Date End Date Ferdinand Weeks MD [address] [place] [address] PCP - General Internal Medicine 01/10/21 documented as of this encounter
[2023-08-18] MEDS: LEVOTHYROXINE SODIUM 88 MCG TABLET PO SCH (05:48)
--- NOTE | 2023-08-18 07:01 | Anesthesiology Consultation ---
Date of Service August 18, 2023 Assessment & Plan (1) Encounter for pre-operative examination: Chart Review Chart Review: Acceptable Risk for Surgery History Surgery Operation Date: 08/18/23 11:30 Proposed Procedures p Open Reduction Internal Fixation Ankle(Left) - Ottoniel Gupta MD Height/Weight Height: 5 ft 8 in Weight: 80.6 kg Allergies Allergy/AdvReac Type Severity Reaction Status Date / Time meloxicam Allergy Unknown RECTAL Verified 01/03/21 06:21 BLEEDING WITH IT pantoprazole Allergy Unknown RASH Verified 01/03/21 06:21 Medications Home Medications Medication Instructions Recorded Confirmed Last Taken atorvastatin 10 mg tablet 10 mg PO HS 12/29/18 08/17/23 Unknown fluticasone 250 mcg-salmeterol 50 1 puffs inhalation BID 12/29/18 08/17/23 Unknown mcg/dose blistr powdr for inhalation (Advair Diskus) food supplemt, lactose-reduced 1 ea PO QAM 12/29/18 08/17/23 Unknown (Ensure oral liquid) levothyroxine 88 mcg tablet 88 mcg PO QAM 12/21/20 08/17/23 Unknown metoprolol succinate 50 mg 75 mg PO QPM 12/21/20 08/17/23 Unknown tablet,extended release 24 hr tamsulosin 0.4 mg capsule 0.4 mg PO DAILY 90 days #90 caps 08/10/22 08/17/23 Unknown albuterol sulfate 90 mcg/actuation 2 puff inhalation Q6H PRN sob or 08/17/23 08/17/23 Unknown aerosol inhaler wheezing Active Medications Generic Name Dose Route Start Last Admin Trade Name Freq PRN Reason Stop Dose Admin Acetaminophen 1,000 mg 08/17/23 17:45 08/18/23 05:55 Acetaminophen 500 Mg Tab PO 09/16/23 17:44 500 mg Q8 EDWIN Administration Atorvastatin Calcium 10 mg 08/17/23 21:00 08/17/23 20:54 Atorvastatin 10 Mg Tab PO 09/16/23 20:59 10 mg HS EDWIN Administration Levothyroxine Sodium 88 mcg 08/18/23 06:30 08/18/23 05:48 Levothyroxine Sodium 88 Mcg Tablet PO 09/17/23 06:29 88 mcg DAILYBB EDWIN Administration Metoprolol Succinate 75 mg 08/17/23 21:00 08/17/23 20:54 Metoprolol Succ 25mg Ext Rel Tab PO 09/16/23 20:59 75 mg QPM EDWIN Administration Past Medical History Medical History (Updated 08/18/23 @ 07:00 by Ar Desai MD) Pacemaker Follows with Dr Hernadez. medtronic device, last checked ~September 2020. Hypertension Hyperlipidemia Asthma well controlled Tachy-ef syndrome (~2015) Actinic keratosis BPH (benign prostatic hyperplasia) Osteoarthritis Hx of colonic polyp History of esophageal dilatation Schatzki's ring Past Family History Family History Other Cancer Hypertension No family history of adverse response to anesthesia Past Surgical History Surgical History History of cataract surgery right History of total hip arthroplasty (~2017) Left hip History of bowel resection r/t colon polyps History of colonoscopy History of esophagogastroduodenoscopy (EGD) S/P cardiac pacemaker procedure (~09/2015) History of thyroidectomy, total S/P Mohs surgery for basal cell carcinoma Social History Smoking Status: Never smoker Do You Dip or Chew Tobacco: No Hx Alcohol Use: No Alcohol type: hard liquor alcohol intake frequency: holidays/special occasions only Hx Substance Use: No substance use type: does not use Physical Exam Vital Signs Last Vital Signs Temp 37.0 C 08/17/23 20:45 Pulse 79 08/17/23 20:45 Resp 18 08/17/23 20:45 BP 149/53 H 08/17/23 20:45 Pulse Ox 96 08/17/23 20:45 O2 Del Method Room Air 08/17/23 20:45 Testing Laboratory Results 08/17/23 12:57 08/17/23 12:57 PT 10.7 Seconds (9.0-12.0) 08/17/23 12:57 INR 1.0 (0.9-1.1) 08/17/23 12:57 APTT 29 Seconds (21-31) 08/17/23 12:57 Electrocardiogram Date: 08/17/23 Findings: + NSR @ ( rate 70) and + RBBB Chest X-Ray Date: 08/17/23 Findings: + NAD and + cardiomegaly (stable mild)
[2023-08-18] MEDS: FLUTICASONE/VILANTEROL 200/25MCG 14 PUFFS/INHALER INH SCH (07:54)
[2023-08-18] MEDS: TAMSULOSIN HCL 0.4 MG CAP PO SCH (07:54)
--- NOTE | 2023-08-18 09:55 | Orthopedic Consultation ---
Date of Consultation August 18, 2023 Assessment & Plan (1) Trimalleolar fracture of ankle, closed: I had a long discussion with the patient and his and about his diagnosis and treatment options. While this fracture is nondisplaced and could potentially be treated into a cast this would require nonweightbearing. Because of his dementia I am concerned that he will not be able to follow nonweightbearing precautions and therefore would be at risk for displacing the fracture. This is an unstable pattern injury. Even with surgery, however I would like him to maintain nonweightbearing. There are some risks of him developing wound problems because of the surgery if he is up walking on it and developed swelling. After reviewing all the options patient and his would like to proceed with surgery. Patient is perseverating on going home after surgery. I told him that this is our long-term plan, however I think he is most certainly going to need short-term help at a half-way facility or rehab facility upon leaving the hospital. All questions were answered. Informed consent was signed. Has been n.p.o. since midnight last night. Plan on proceeding to the operating room today for open reduction internal fixation left trimalleolar ankle fracture. History of Present Illness Reason for Consultation: Left ankle fracture Attending Physician: Jimmy Guerrero MD History of Present Illness 87-year-old male, medical history significant for dementia, twisted his ankle at home on Saturday. Was having pain and difficulty ambulating so he presented to the emergency room yesterday on Saturday. X-rays were obtained at that time as well as a CT scan. This demonstrated a trimalleolar ankle fracture with minimal displacement. Patient was admitted to the internal medicine service due to difficulty ambulating. Orthopedics was consulted for evaluation and management of the ankle fracture. Patient was seen and examined This morning. While his nursing orders were for bed rest and elevation he was found to be standing at the bedside. He was confused about why his family was not there with him. He reports his ankle still hurts. He is having difficulty remembering the details of how he fell. Denies numbness or tingling in the left lower extremity. Allergies Allergy/AdvReac Type Severity Reaction Status Date / Time meloxicam Allergy Unknown RECTAL Verified 01/03/21 06:21 BLEEDING WITH IT pantoprazole Allergy Unknown RASH Verified 01/03/21 06:21 Home Medications Medication Instructions Recorded Confirmed Type atorvastatin 10 mg tablet 10 mg PO HS 12/29/18 08/17/23 History fluticasone 250 mcg-salmeterol 50 1 puffs inhalation BID 12/29/18 08/17/23 History mcg/dose blistr powdr for inhalation (Advair Diskus) food supplemt, lactose-reduced 1 ea PO QAM 12/29/18 08/17/23 History (Ensure oral liquid) levothyroxine 88 mcg tablet 88 mcg PO QAM 12/21/20 08/17/23 History metoprolol succinate 50 mg 75 mg PO QPM 12/21/20 08/17/23 History tablet,extended release 24 hr tamsulosin 0.4 mg capsule 0.4 mg PO DAILY 90 days #90 caps 08/10/22 08/17/23 Rx albuterol sulfate 90 mcg/actuation 2 puff inhalation Q6H PRN sob or 08/17/23 08/17/23 History aerosol inhaler wheezing Patient History Medical History Pacemaker Follows with Dr Hernadez. medtronic device, last checked ~September 2020. Hypertension Hyperlipidemia Asthma well controlled Tachy-fe syndrome (~2015) Actinic keratosis BPH (benign prostatic hyperplasia) Osteoarthritis Hx of colonic polyp History of esophageal dilatation Schatzki's ring Surgical History History of cataract surgery right History of total hip arthroplasty (~2017) Left hip History of bowel resection r/t colon polyps History of colonoscopy History of esophagogastroduodenoscopy (EGD) S/P cardiac pacemaker procedure (~09/2015) History of thyroidectomy, total S/P Mohs surgery for basal cell carcinoma Family History Other Cancer Hypertension No family history of adverse response to anesthesia Social History Smoking Status: Never smoker Second Hand Exposure: No; Do You Dip or Chew Tobacco: No; Hx Alcohol Use: No Hx Substance Use: No Preferred Language: Maltese Communication Ability: Effective Music Department Chair Required: No Beliefs That Will Affect Care: None Current Living Situation: Spouse Other Information That Helps Us Care for You: No Feels Safe at Home: Yes Assistive Devices: Cane and Denture - Upper Physical Exam Physical Exam: In general he is a pleasantly demented male in no acute distress. He is not oriented to the year, month, or date. He knows he is in a hospital but he does not know which one. Left lower extremity: His splint was removed. Skin is checked. He still has skin wrinkles. There is really minimal swelling. He is tender however over the medial malleolus, and the fibula. Distally neurovascularly intact. Results & Data Vital Signs (Past 12 Hours) Vital Signs Temp Pulse Resp BP Pulse Ox O2 Del Method 08/18/23 08:00 36.5 C 62 18 157/77 H 95 Room Air Diagnostic Findings X-rays and CT scan of the left ankle were reviewed by me. He has a nondisplaced trimalleolar ankle fracture with comminution at the fibula. Posterior malleolus fragment is small.
[2023-08-18] MEDS ORDERED: PROPOFOL IV EMULSION 10 MG/ML 20 ML VIAL IV ONE (11:02)
[2023-08-18] MEDS ORDERED: ONDANSETRON INJ 2 MG/ML 2 ML VIAL ONE (11:02)
[2023-08-18] MEDS ORDERED: LIDOCAINE 2% 2 ML VIAL/AMP(20MG/ML) INFIL ONE (11:02)
[2023-08-18] MEDS ORDERED: fentaNYL citrate PF 100 MCG/2 ML VIAL ONE ×2 (11:03→13:20)
[2023-08-18] MEDS ORDERED: SODIUM CHLORIDE 0.9% PF INJ 10 ML VIAL ONE (11:24)
[2023-08-18] MEDS ORDERED: ROPIVACAINE 0.5% 5 MG/ML 30 ML VIAL ONE (11:24)
[2023-08-18] MEDS ORDERED: ePHEDrine sulfate 50 MG/5 ML SYR ONE (12:17)
[2023-08-18] MEDS ORDERED: ceFAZolin 330 MG/ML 1 GM VIAL ONE (12:17)
--- NOTE | 2023-08-18 14:03 | Operative Report ---
Post Operative Report Pre & Post Diagnosis Operation Date: 08/18/23 11:30 Pre-Op Diagnosis: Closed Trimalleolar fracture of left ankle. Post-Op Diagnosis: Closed Trimalleolar fracture of left ankle I identified the patient and participated in the time-out.: Yes Procedure Operation Date: 08/18/23 11:30 Actual Procedures p Open Reduction Internal Fixation Ankle(Left) - Ottoniel Gupta MD Surgeon MARISSA Gupta MD Quality Assurance Consultant Milvia Young PA-C Estimated Blood Loss 20 Findings Consistent with Post-Op Diagnosis see operative report Specimens none Drains none Complications none Disposition Accompanied Patient To Recovery: Yes Indications This 87 year old male was seen in consultation for left ankle trimalleolar fracture. He and his family elected to proceed with surgical fixation after being educated about potential risks and outcomes. Preoperative imaging was obtained. Description of Procedure The patient was taken to the operating room where he was given general anesthesia. He was prepped and draped in the usual sterile fashion. Please see Dr. Gupta's operative report for specifics of the procedure. I was present for the entire case from initial patient positioning through final wound closure. Assistance was provided in tissue retraction, hemostasis, fracture reduction, hardware placement, and final wound closure. The patient was taken to the recovery room in satisfactory condition. I attest to the content of the Intraoperative Record and any orders documented therein. Any exceptions are noted below.
--- NOTE | 2023-08-18 14:07 | Operative Report ---
Post Operative Report Pre & Post Diagnosis Operation Date: 08/18/23 11:30 Preoperative diagnosis: Trimalleolar left ankle fracture. Postop diagnosis: trimalleolar left ankle fracture. I identified the patient and participated in the time-out.: Yes Procedure Operation Date: 08/18/23 11:30 Open reduction internal fixation left ankle trimalleolar fracture. Surgeon Ottoniel Gupta MD Infant Room Teacher Hiram Young PA-C. No resident or fellow was available to assist. Estimated Blood Loss 20 Findings Consistent with Post-Op Diagnosis Specimens None Anesthesia Type General Regional Complications none Disposition Disposition: Recovery Room Indications 87-year-old male with medical history significant for dementia, twisted his ankle on Saturday at home. presented to the emergency room yesterday on Saturday with complaint of pain with weightbearing. X-rays and CT scan were obtained demonstrating a trimalleolar ankle fracture with no displacement of the medial malleolus or posterior malleolus but mild displacement and comminution of the lateral malleolus fracture. I had a long discussion with the patient and his about his diagnosis and treatment options. He was noncompliant with her bedrest restrictions while in the hospital. this is an unstable pattern injury. He was a candidate for open reduction internal fixation of the left ankle fracture to minimize the risk of displacement and maintain the fracture alignment while it is healing. I had a long discussion with the patient and the about how he will still need to be nonweightbearing after surgery. All questions were answered. They elected to proceed with surgery. Informed consent was signed. Description of Procedure Patient was identified in the preoperative holding area where his surgical site was marked. He was given a popliteal block by anesthesia then brought back to the operating room was placed on the operating room table and general anesthesia was administered. All bony prominences were padded. A bump was placed underneath the operative hip. He was prepped and draped in the usual sterile fashion. Prior to incision a multidisciplinary timeout was called. All in the room were in agreement. I began by fixing the medial malleolus fracture which was nondisplaced. Using the 3D CT scan to template out the cyst location for our screw, I elected to place the screw on the anterior aspect of the medial malleolus perpendicular to the fracture. Fluoroscopy was used to confirm our start position. A 3 mm luci was then made in the skin just distal to the anterior aspect of the medial malleolus. I bluntly dissected with a hemostat down onto the bone. A guidewire for a 4.0 mm cannulated screw was placed down onto the bone with a soft tissue protector. The guidewire was placed using fluoroscopic guidance perpendicular to the medial malleolus fracture. I was happy with the location of the guidewire. We then took our measurement and drilled the near cortex. I then placed a 40 mm x 4.0 mm cannulated titanium screw across the fracture site. Excellent fixation was obtained. Next, we turned our attention to the lateral malleolus. The limb was exsanguinated with an Esmarch bandage and the tourniquet was inflated to 250 mmHg. An 8 cm long incision was made starting at the tip of the lateral malleolus and extending proximally along the posterior border of the fibula. I dissected down through subcutaneous tissues. Small crossing venous branches were electrocoagulated. Branches off the superficial peroneal nerve were identified and protected throughout the case. Using electrocautery I then expos ed the fracture subperiosteally. The comminution in the anterior aspect of the fracture was visualized. I was able to provisionally reduce the fracture using a pointed tenaculum clamp. A K wire was then placed perpendicular to the fracture to hold the reduction. I then applied an Arthrex posterolateral plate along the posterior lateral aspect of the fibula. This was clamped of the fibula using a lion-jaw clamp. I checked the position of the plate and was happy with its location. We then fixed the plate to the bone proximally using a total of three 3.5 mm cortical screws In bicortical fashion. this nicely reduced the plate to the bone and further buttress the fracture. I then placed another 3.5 mm cortical screw in lag fashion across the fracture through the plate. Distally total of 4four 3.0 mm locking screws were placed to control the rotation of the distal fragment. Excellent fixation was obtained. At this point we checked our syndesmosis. The shuck test was negative. F luoroscopic stress test was negative for any clear space widening or syndesmotic widening. I was unable to visualize the posterior malleolus fracture on fluoroscopy. Given the above findings I did not feel that fixation of the posterior malleolus fracture was indicated. Therefore, the tourniquet was let down and meticulous hemostasis was ensured. Wound was irrigated out with copious amounts normal saline. The fascia and periosteum was closed over the top of the plate using a running 2-0 Vicryl suture. Deep dermal layer was closed with inverted 3-0 Vicryl suture in interrupted fashion. Stapler was used for the skin. Patient was then placed into a posterior and U plaster slab splint with the ankle held at neutral. He was then extubated, transferred onto the hospital bed, and transferred to recovery room in stable condition. Postoperative course: Patient be discharged from recovery room. He will be nonweightbearing for the next 6 weeks on this ankle fracture. [facility] about maintaining his nonweightbearing status. He can to move around in a wheelchair for transportation. Do not think it is a good idea for him to try to use a walker and hop around, as he would be a high fall risk. recommend aspirin for DVT prophylaxis 81 mg twice a day. Follow-up with orthopedics 2 weeks after discharge for splint removal, staple remover, and placement into a fiberglass cast. I attest to the content of the Intraoperative Record and any orders documented therein. Any exceptions are noted below.
[2023-08-18] MEDS ORDERED: MoRPHine SULFATE 2 MG/ML CARP IV PRN (14:25)
[2023-08-18] MEDS ORDERED: oxyCODONE HCL IR 5 MG TAB (IMMEDIATE RELEASE) PO PRN ×2 (14:25→14:49)
--- NOTE | 2023-08-18 14:27 | Anesthesiology Progress Note ---
Date of Service August 18, 2023 Anesthesia Post Procedure Vital Signs Vital Signs: Temp Pulse Pulse Pulse Resp BP BP 08/18/23 14:20 36.5 C 62 16 111/67 08/18/23 14:10 61 12 114/61 08/18/23 14:00 62 16 111/57 L 08/18/23 13:50 36.6 C 57 L 12 109/67 08/18/23 08:00 36.5 C 62 18 157/77 H 08/17/23 20:45 37.0 C 79 18 149/53 H 08/17/23 17:38 36.7 C 60 16 173/61 H 08/17/23 14:42 77 16 129/93 Pulse Ox O2 Del Method O2 Flow Rate 08/18/23 14:20 94 Room Air 08/18/23 14:10 97 Oxymask 6 08/18/23 14:00 98 Oxymask 8 08/18/23 13:50 98 Oxymask 10 08/18/23 08:00 95 Room Air 08/17/23 20:45 96 Room Air 08/17/23 17:38 97 Room Air 08/17/23 14:42 98 Room Air Transfer of Care Handoff Completed per policy Notes Mental Status: alert / awake / arousable Patient Amnestic to Procedure: Yes Nausea / Vomiting: adequately controlled Pain: adequately controlled Airway Patency, RR, SpO2: stable & adequate BP & HR: stable & adequate Hydration State: stable & adequate Anesthetic Complications: no major complications apparent
--- NOTE | 2023-08-18 14:30 | Hospitalist Progress Note ---
Date of Service August 18, 2023 Assessment & Plan (1) Trimalleolar fracture of ankle, closed: (2) Hypertension: (3) Hyperlipidemia: (4) Asthma: (5) Tachy-fe syndrome: (6) Pacemaker: (7) BPH (benign prostatic hyperplasia): Plan This is an 87-year-old male with PMH of hypothyroidism, asthma, tachybradycardia status post pacemaker placement, hypertension, BPH, history of thyroid cancer, dementia and other medical problems listed below who presents after twisting his ankle and was found to have a trimalleolar fracture. Left Leg Trimalleolar fracture s/p ORIF on july Fall at home, has been ambulating with walker until it became too painful Lower extremity CT shows confirmation of the trimalleolar left ankle fracture as above. No dislocation Pre-op CXR with stable cardiomegaly, no acute process within the chest. EKG with SR with PACs, RBBB, h/o inferior infarct. Patient underwent open reduction and internal fixation on August 18, 2023 PT OT evaluation Pain control with Tylenol, low-dose oxycodone and morphine Will place him on DVT prophylaxis will likely need rehab at discharge. HTN BP elevated, optimize pain control. Continue Toprol HLD Chronic, stable. Continue statin Asthma Well-controlled. Continue home inhalers Tachy-fe syndrome S/p pacemaker BPH Continue Tamsulosin. Bladder scan PRN Dementia Not documented in chart but notes memory deficit. A&O x 2 at baseline DVT Ppx: SCDs for now Code status: FULL per discussion with patient, PCP: Patricia Dispo: admitted to med/surg Discussed with at bedside. She is agreeable for rehab Please note the above document was generated using voice recognition software. It may contain grammatical, syntax or spelling errors. Any formal questions or concerns about the content, text or information contained within the body of this dictation should be directly addressed to the provider for clarification Admission and Anticipated Discharge Date Admission Date: August 17, 2023 Subjective Patient seen and examined at bedside Is lying on the bed comfortably; not in distress He denies pain or discomfort His is at bedside as well. Reviewed radiological imaging at bedside. Review of Systems Review of Systems: All systems reviewed & are unremarkable except as noted in Subjective Physical Exam Physical Exam: Constitutional: WD/WN, vitals as above, NAD, sitting up in bed, pleasant, conversing easily Respiratory: normal respiratory effort, lungs clear to auscultation, no wheeze, rales, rhonchi. Normal insp/exp effort, no accessory muscle use Cardiovascular: RRR, no murmur, no edema Vessels: no JVD or carotid bruit Chest: normal inspection of chest Abdomen: normal bowel sounds, soft, nontender, no hepatosplenomegaly Musculoskeletal: kerlex wrapped in place on left leg Skin: no rashes, warm and dry normal turgor Neurologic: PERRL, EOMI, accommodation nl, no face palsy, no dysarthria CN's II- XI intact bilaterally and moves all extremities Psychiatric: A+Ox3, euthymic affect Results & Data Results & Data Vital Signs (Past 12 Hours) Vital Signs Temp Pulse Pulse Resp BP Pulse Ox O2 Del Method 08/18/23 14:10 61 12 114/61 97 Oxymask 08/18/23 14:00 62 16 111/57 L 98 Oxymask 08/18/23 13:50 36.6 C 57 L 12 109/67 98 Oxymask 08/18/23 08:00 36.5 C 62 18 157/77 H 95 Room Air O2 Flow Rate 08/18/23 14:10 8 08/18/23 14:00 10 08/18/23 13:50 15 08/18/23 08:00
[2023-08-18] MEDS ORDERED: TAMSULOSIN HCL 0.4 MG CAP PO PRN (14:49)
[2023-08-18] MEDS ORDERED: HYDROmorphone INJ 0.5 MG/0.5 ML SYR IV PRN (14:49)
[2023-08-18] MEDS ORDERED: METOCLOPRAMIDE HCL INJ 5 MG/ML 2 ML VIAL IV PRN (14:49)
[2023-08-18] MEDS ORDERED: MAGNESIUM HYDROXIDE SUSP 30 ML UDC PO PRN (14:49)
[2023-08-18] MEDS ORDERED: bisacodyL 10 MG SUPP PR PRN (14:49)
[2023-08-18] MEDS ORDERED: NALOXONE HCL 0.4 MG/1 ML VIAL/CARP IV PRN (14:49)
[2023-08-18] MEDS ORDERED: diphenhydrAMINE 50 MG/ML VIAL IV PRN (14:49)
[2023-08-18] MEDS ORDERED: ALUMINUM/MAGNESIUM SUSP 30 ML UDC PO PRN (14:49)
[2023-08-18] MEDS: OLANZapine 10 MG/2.1 ML SDV IM STA (15:12)
[2023-08-18] MEDS: SODIUM CHLORIDE 0.9% 1,000 ML IV SCH (16:07)
[2023-08-18] MEDS: OLANZapine 10 MG/2.1 ML SDV IM ONE (16:08)
[2023-08-18] MEDS: ASCORBIC ACID 500 MG TAB PO SCH (17:24)
[2023-08-18] MEDS: FERROUS GLUCONATE 324 MG TAB PO SCH (17:24)
--- NOTE | 2023-08-18 20:12 | Fluoroscopy Report ---
FL ankle LT min 3V RTN CLINICAL HISTORY: lt ankle TECHNIQUE: 4 views were obtained with the C-arm in the OR with the above procedure. Total fluoroscopy time was 24 seconds. Radiation dose was 0.55 mGy. Comparison: Comparison is made to ankle radiographs 08/17/2023 FINDINGS/IMPRESSION: Intraoperative images were obtained of open reduction internal fixation of the l eft ankle fracture. Please correlate with intraoperative fluoroscopy and operative report. ACT 112: Negative or not required by law. Electronically signed by: Remberto Rodgers M.D. 08/18/2023 8:10 PM
[2023-08-18] MEDS: DOCUSATE SODIUM 100 MG CAP PO SCH (20:41)
[2023-08-18] MEDS: SENNA 8.6 MG TAB PO SCH (20:41)
[2023-08-18] MEDS: ASPIRIN 81 MG ECTAB PO SCH (20:41)
[2023-08-18] MEDS: ceFAZolin 2000MG 2,000 MG/15 ML SYR IV SCH (20:42)
--- NOTE | 2023-08-18 21:19 | Electrocardiogram Report ---
Test Reason : Blood Pressure : / mmHG Vent. Rate : 070 BPM Atrial Rate : 070 BPM P-R Int : 204 ms QRS Dur : 126 ms QT Int : 394 ms P-R-T Axes : 114 022 -24 degrees QTc Int : 425 ms Sinus rhythm with Premature ventricular complexes with intermittent atial pacing Right bundle branch block Septal infarct , age undetermined T wave abnormality, consider inferior ischemia Abnormal ECG When compared with ECG of 06-MAY-2017 10:10, Sinus rhythm has replaced Electronic ventricular pacemaker Confirmed by Sujit Seymour ([id number]) on 08/18/2023 9:19:23 PM Referred By: REFERRED SELF Confirmed By:Sujit Seymour
--- NOTE | 2023-08-18 22:06 | Electrocardiogram Report ---
Test Reason : Blood Pressure : / mmHG Vent. Rate : 061 BPM Atrial Rate : 061 BPM P-R Int : 288 ms QRS Dur : 138 ms QT Int : 416 ms P-R-T Axes : 000 047 -27 degrees QTc Int : 418 ms Atrial-paced rhythm with prolonged AV conduction Right bundle branch block T wave abnormality, consider inferior ischemia Abnormal ECG When compared with ECG of 17-AUG-2023 17:04, (unconfirmed) Electronic atrial pacemaker has replaced Sinus rhythm Criteria for Septal infarct are no longer Present Confirmed by Sujit Seymour ([id number]) on 08/18/2023 10:05:41 PM Referred By: REFERRED SELF Confirmed By:Sujit Seymour
[2023-08-19] MEDS: OLANZapine 10 MG/2.1 ML SDV IM STA (02:12)
[2023-08-19 07:07] LABS: Hematocrit (blood only) 37.2 % (42.0-52.0); Hemoglobin 12.5 g/dl (14.0-18.0); Mean Corpuscular Hemoglobin 30.4 pg (25.0-34.0); Mean Corpuscular Hgb Conc 33.6 g/dL (32.0-36.0); Mean Corpuscular Volume 90.5 fL (80.0-100.0); Mean Platelet Volume 9.3 fL (9.4-12.4); Platelet Count 196 K/uL (130-400); RDW Coefficient of Variation 13.2 % (11.5-14.5); RDW Standard Deviation 43.7 fL (36.4-46.3); Red Blood Count 4.11 M/uL (4.70-6.10); White Blood Count 7.84 K/ul (4.8-10.8)
[2023-08-19 07:11] LABS: BUN Creatinine Ratio 14.8 (10-20); Calcium 9.1 mg/dl (8.6-10.3); Creatinine Clr Calc Pharmacy 44.9 ml/min; Est GFR (African American) 70.2 ml/min; Est GFR (Non-African American) 60.5 ml/min
--- NOTE | 2023-08-19 07:49 | Orthopedic Progress Note ---
Date of Service August 19, 2023 Assessment & Plan (1) Trimalleolar fracture of ankle, closed: Plan: Patient was seen in his room this morning in conjunction with Dr. Gupta. It was emphasized to him that he must stay in bed and keep weight off of the leg. He may start with physical therapy today to work on transfers from bed to chair. He will likely require a wheelchair to assist with mobility. He should not attempt to ambulate on one leg with a walker. For pain he may continue to use Tylenol. We will start tramadol instead of the narcotic to see if this minimizes his confusion. He will likely need placement as his will be unable to care for him at home in his current condition. Continue with ice and elevation of the operative leg. Admission and Anticipated Discharge Date Admission Date: August 17, 2023 Subjective This 87-year-old male is seen today in his room. He is 1 day status post ORIF of a trimalleolar fracture. He currently denies any complaints. He is pleasantly confused this morning. He was reportedly agitated last evening and was attempting to remove the tray. He is calm at this time. He is one-on-one with a bedside aide. He is unable to reliably answer questions at this point. He denies any shortness of breath or chest discomfort. He does admit to some intermittent ankle pain. Physical Exam Physical Exam: General: Well-developed, elderly white male, in no acute distress. Laying in be d. He is pleasantly confused. Skin: Warm and dry with fair turgor. No rashes. Postsurgical splint is in place on the left lower leg. Musculoskeletal: The patient has intact motor function of his toes on the left foot. Ankle motion is unable to be assessed due to his splint. Neurologic: Gross sensation is intact across the lower extremities by soft touch. Results & Data Vital Signs (Past 12 Hours) Vital Signs Temp Pulse Resp BP Pulse Ox O2 Del Method 08/18/23 23:30 36.8 C 92 H 18 143/83 H 96 Room Air 08/18/23 20:37 36.6 C 87 18 151/80 H 95 Room Air Laboratory Results CBC obtained today shows a white count of 7.84. H&H of 12.5 and 37.2. Electrolytes are unremarkable this morning. Glucose of 90.
[2023-08-19] MEDS ORDERED: traMADol HCL 50 MG TABLET PO PRN (07:50)
[2023-08-19] MEDS: MULTIVITAMIN TAB PO SCH (08:05)
[2023-08-19] MEDS: dexAMETHasone 4 MG TAB PO SCH (08:06)
--- NOTE | 2023-08-19 14:41 | Hospitalist Progress Note ---
Date of Service August 19, 2023 Assessment & Plan (1) Trimalleolar fracture of ankle, closed: (2) Hypertension: (3) Hyperlipidemia: (4) Asthma: (5) Tachy-fe syndrome: (6) Pacemaker: (7) BPH (benign prostatic hyperplasia): Plan This is an 87-year-old male with PMH of hypothyroidism, asthma, tachybradycardia status post pacemaker placement, hypertension, BPH, history of thyroid cancer, dementia and other medical problems listed below who presents after twisting his ankle and was found to have a trimalleolar fracture. Left Leg Trimalleolar fracture s/p ORIF on july Fall at home, was ambulating with walker until it became too painful Lower extremity CT shows confirmation of the trimalleolar left ankle fracture as above. No dislocation Pre-op CXR with stable cardiomegaly, no acute process within the chest. EKG with SR with PACs, RBBB, h/o inferior infarct. Patient underwent open reduction and internal fixation on August 18, 2023 Pain control with Tylenol, low dose tramadol aspirin bid for dvt prophylaxis. PT/OT eval; recommend rehab. HTN BP elevated, optimize pain control. Continue Toprol HLD Chronic, stable. Continue statin Asthma Well-controlled. Continue home inhalers Tachy-fe syndrome S/p pacemaker BPH Continue Tamsulosin. Bladder scan PRN Dementia Not documented in chart but notes memory deficit. A&O x 2 at baseline DVT Ppx: aspirin Code status: FULL per discussion with patient, PCP: Patricia Dispo: patient underwent ORIF with left leg trimalleolar fracture. PT/OT recommend rehab. Patient stable for transfer to rehab Please note the above document was generated using voice recognition software. It may contain grammatical, syntax or spelling errors. Any formal questions or concerns about the content, text or information contained within the body of this dictation should be directly addressed to the provider for clarification Admission and Anticipated Discharge Date Admission Date: August 17, 2023 Subjective Patient seen and examined at bedside Overnight, he got agitated and required IM Zyprexa Today morning, he is alert and oriented to self. Sitting up on the chair at the side of the bed Review of Systems Review of Systems: All systems reviewed & are unremarkable except as noted in Subjective Physical Exam Physical Exam: Constitutional: WD/WN, vitals as above, NAD, sitting up in bed, pleasant, conversing easily Respiratory: normal respiratory effort, lungs clear to auscultation, no wheeze, rales, rhonchi. Normal insp/exp effort, no accessory muscle use Cardiovascular: RRR, no murmur, no edema Vessels: no JVD or carotid bruit Chest: normal inspection of chest Abdomen: normal bowel sounds, soft, nontender, no hepatosplenomegaly Musculoskeletal: kerlex wrapped in place on left leg Skin: no rashes, warm and dry normal turgor Neurologic: PERRL, EOMI, accommodation nl, no face palsy, no dysarthria CN's II- XI intact bilaterally and moves all extremities Psychiatric: A+Ox3, euthymic affect Results & Data Results & Data Vital Signs (Past 12 Hours) Vital Signs Temp Pulse Resp BP Pulse Ox O2 Del Method 08/19/23 14:19 35.7 C L 72 22 160/81 H 92 Room Air
[2023-08-20] MEDS: traMADol HCL 50 MG TABLET PO PRN (04:23)
--- NOTE | 2023-08-20 09:50 | Orthopedic Progress Note ---
Date of Service August 20, 2023 Assessment & Plan (1) Trimalleolar fracture of ankle, closed: Plan: Keep splint in place Nonweightbearing on left lower extremity. DVT prophylaxis with MANUEL stockings aspirin and SCDs Will need assistance transitioning from his bed to his chair Pain control with extra strength Tylenol DC tramadol Patient will need discharged most likely to a senior living facility Follow-up of [facility] orthopedics in 2 weeks for splint removal and x-rays With questions contact our clinic at [phone] Admission and Anticipated Discharge Date Admission Date: August 17, 2023 Subjective This 87-year-old male seen today 2 days status post open reduction internal fixation for left ankle fracture. Patient is currently lying in bed with a medical insurance clerk serving as a one-on-one. Patient is alert to self. He is able to follow verbal commands. However, I was unable to perform a review of systems due to his cognitive status. Review of Systems Review of Systems: Unobtainable due to cognitive status Physical Exam Physical Exam: Left lower extremity: Splint and dressing are clean dry and intact and left in place. Patient is able to detect light sensation to touch over the pads of all digits. He is able to actively move the digits. Actively he was able to flex his knee beyond 90 degrees and passively I can get him to 0. He had difficulty performing an active straight leg raise test both had no pain when it was done passively. Results & Data Vital Signs (Past 12 Hours) Vital Signs Temp Pulse Resp BP Pulse Ox O2 Del Method 08/20/23 08:11 36.3 C L 67 16 111/64 95 Room Air Diagnostic Findings Laboratory Results WBC 7.84 K/ul (4.8-10.8) 08/19/23 06:24 RBC 4.11 M/uL (4.70-6.10) L 08/19/23 06:24 Hgb 12.5 g/dl (14.0-18.0) L 08/19/23 06:24 Hct 37.2 % (42.0-52.0) L 08/19/23 06:24 MCV 90.5 fL (80.0-100.0) 08/19/23 06:24 MCH 30.4 pg (25.0-34.0) 08/19/23 06:24 MCHC 33.6 g/dL (32.0-36.0) 08/19/23 06:24 RDW Std Deviation 43.7 fL (36.4-46.3) 08/19/23 06:24 RDW Coeff of Zulma 13.2 % (11.5-14.5) 08/19/23 06:24 Plt Count 196 K/uL (130-400) 08/19/23 06:24 MPV 9.3 fL (9.4-12.4) L 08/19/23 06:24 PT 10.7 Seconds (9.0-12.0) 08/17/23 12:57 INR 1.0 (0.9-1.1) 08/17/23 12:57 APTT 29 Seconds (21-31) 08/17/23 12:57 PTT Ratio 1.1 08/17/23 12:57 Sodium 135 mmol/L (136-145) L 08/19/23 06:24 Potassium 4.0 mmol/L (3.5-5.1) 08/19/23 06:24 Chloride 102 mmol/L (98-107) 08/19/23 06:24 Carbon Dioxide 25 mmol/L (21-32) 08/19/23 06:24 Anion Gap 8 (3-11) 08/19/23 06:24 BUN 16 mg/dl (6-23) 08/19/23 06:24 Creatinine 1.08 mg/dl (0.6-1.4) 08/19/23 06:24 Est Cr Clr Drug Dosing 44.9 ml/min 08/19/23 06:24 Est GFR ( Amer) 70.2 ml/min 08/19/23 06:24 Est GFR (Non-Af Amer) 60.5 ml/min 08/19/23 06:24 BUN/Creatinine Ratio 14.8 (10-20) 08/19/23 06:24 Glucose 90 mg/dl (70-99(Fasting)) 08/19/23 06:24 Calcium 9.1 mg/dl (8.6-10.3) 08/19/23 06:24 Impressions Foot X-Ray 08/17/23 11:46 XR ankle LT min 3V routine, XR foot LT min 3V routine CLINICAL HISTORY: twisted, pain. left ankle and foot pain. COMPARISON STUDY: None. FINDINGS: There is a mildly displaced oblique fracture within the distal left fibula. This demonstrates up to 3 mm of lateral displacement. No dislocation. Small nondisplaced fractures are noted at the medial and posterior malleolus. There is diffuse soft tissue swelling within the left ankle and foot. No fracture or dislocation within the left foot. The Lisfranc joint is intact. IMPRESSION: 1. Trimalleolar left ankle fracture as described above. No dislocation. 2. No acute fractures within the left foot. ACT 112: Negative or not required by law. Electronically signed by: Alejandro Cardoso M.D. 08/17/2023 12:[address] 08/17/23 12:[address] DOSE: 488.4 mGy.cm HISTORY: Left ankle pain. fx, communuted TECHNIQUE: Multiaxial CT images of the left ankle were performed and reformatted in the sagittal and coronal plane without the use of contrast. A dose lowering technique was utilized adhering to the principles of ALARA. COMPARISON: Left ankle radiograph 08/17/2023. FINDINGS: There is confirmation of a trimalleolar left ankle fracture. The medial and posterior malleoli fractures are nondisplaced. The distal fibular fracture demonstrates up to 3 mm of lateral and posterior displacement. No dislocation. The calcaneus appears intact. There are small plantar and posterior calcaneal spurs noted. Subcutaneous edema noted within the left ankle. IMPRESSION: Confirmation of the trimalleolar left ankle fracture as above. No dislocation. ACT 112: Negative or not required by law. Electronically signed by: Alejandro Cardoso M.D. 08/17/2023 1:15 PM Chest X-Ray 08/17/23 13:23 XR chest 1V portable HISTORY: preop COMPARISON: Chest 12/17/2005. FINDINGS: No pneumothorax. No pleural effusions. Left basilar linear densities favor subsegmental atelectasis or scarring. Otherwise, the lungs are clear. Calcifications within the aortic knob. The cardiac silhouette remains mildly enlarged. Is left-sided dual-chamber pacemaker. IMPRESSION: Stable mild cardiomegaly. Otherwise, no acute process within the chest. ACT 112: Negative or not required by law. Electronically signed by: Alejandro Cardoso M.D. 08/17/2023 2:44 PM Ankle X-Ray 08/18/23 11:39 FL ankle LT min 3V RTN CLINICAL HISTORY: lt ankle TECHNIQUE: 4 views were obtained with the C-arm in the OR with the above procedure. Total fluoroscopy time was 24 seconds. Radiation dose was 0.55 mGy. Comparison: Comparison is made to ankle radiographs 08/17/2023 FINDINGS/IMPRESSION: Intraoperative images were obtained of open reduction internal fixation of the left ankle fracture. Please correlate with intraoperative fluoroscopy and operative report. ACT 112: Negative or not required by law. Electronically signed by: Remberto Rodgers M.D. 08/18/2023 8:10 PM
--- NOTE | 2023-08-20 14:57 | Hospitalist Progress Note ---
Date of Service August 20, 2023 Assessment & Plan (1) Trimalleolar fracture of ankle, closed: (2) Hypertension: (3) Hyperlipidemia: (4) Tachy-fe syndrome: (5) Pacemaker: (6) BPH (benign prostatic hyperplasia): Plan This is an 87-year-old male with PMH of hypothyroidism, asthma, tachybradycardia status post pacemaker placement, hypertension, BPH, history of thyroid cancer, dementia and other medical problems listed below who presents after twisting his ankle and was found to have a trimalleolar fracture. Left Leg Trimalleolar fracture s/p ORIF on july Fall at home, was ambulating with walker until it became too painful Lower extremity CT shows confirmation of the trimalleolar left ankle fracture as above. No dislocation Pre-op CXR with stable cardiomegaly, no acute process within the chest. EKG with SR with PACs, RBBB, h/o inferior infarct. Patient underwent open reduction and internal fixation on August 18, 2023 Pain control with Tylenol, low dose tramadol aspirin bid for dvt prophylaxis. PT/OT eval; recommend rehab. Patient to go to [facility] when bed is available. HTN BP elevated, optimize pain control. Continue Toprol HLD Chronic, stable. Continue statin Asthma Well-controlled. Continue home inhalers Tachy-fe syndrome S/p pacemaker BPH Continue Tamsulosin. Bladder scan PRN Dementia Not documented in chart but notes memory deficit. A&O x 2 at baseline DVT Ppx: aspirin Code status: FULL per discussion with patient, PCP: Patricia Dispo: patient underwent ORIF with left leg trimalleolar fracture. PT/OT recommend rehab. Patient stable for transfer to rehab Please note the above document was generated using voice recognition software. It may contain grammatical, syntax or spelling errors. Any formal questions or concerns about the content, text or information contained within the body of this dictation should be directly addressed to the provider for clarification Admission and Anticipated Discharge Date Admission Date: August 17, 2023 Subjective Patient seen and examined at bedside He is confused but can be redirected Appears comfortable; not in distress Review of Systems Review of Systems: All systems reviewed & are unremarkable except as noted in Subjective Physical Exam Physical Exam: Constitutional: Awake, alert oriented to self. Requires frequent reorientation Respiratory: normal respiratory effort, lungs clear to auscultation, no wheeze, rales, rhonchi. Normal insp/exp effort, no accessory muscle use Cardiovascular: RRR, no murmur, no edema Vessels: no JVD or carotid bruit Chest: normal inspection of chest Abdomen: normal bowel sounds, soft, nontender, no hepatosplenomegaly Musculoskeletal: kerlex wrapped in place on left leg Skin: no rashes, warm and dry normal turgor Neurologic: PERRL, EOMI, accommodation nl, no face palsy, no dysarthria CN's II- XI intact bilaterally and moves all extremities Psychiatric: A+Ox3, euthymic affect Results & Data Results & Data Vital Signs (Past 12 Hours) Vital Signs Temp Pulse Resp BP Pulse Ox O2 Del Method 08/20/23 14:38 36.8 C 71 18 112/61 97 Room Air 08/20/23 08:11 36.3 C L 67 16 111/64 95 Room Air
--- NOTE | 2023-08-21 11:07 | Orthopedic Progress Note ---
Date of Service August 21, 2023 Assessment & Plan (1) Trimalleolar fracture of ankle, closed: Plan: Postop day 3-ORIF right ankle fracture with Dr. Gupta Keep splint in place Ice and elevate as needed for swelling and pain. Nonweightbearing on left lower extremity At all times. Use walker to assist with ambulation. DVT prophylaxis with MANUEL stockings aspirin and SCDs Will need assistance transitioning from his bed to his chair Pain control with extra strength Tylenol Patient will need discharged most likely to a detention facility. Case management assisting. Okay for discharge from orthopedic standpoint when medically stable. Follow-up With [facility] orthopedics in 2 weeks for splint removal and x-rays As scheduled. With questions contact our clinic at [phone] Admission and Anticipated Discharge Date Admission Date: August 17, 2023 Subjective Patient sitting up in chair. Lifts his leg to show me his splint. Denies any pain in the left ankle. Just finished with occupational therapy. He is pleasantly confused. Physical Exam Musculoskeletal: Exam of his left lower extremity: His splint is clean, dry and intact. His toes move freely. He has normal sensation of the toes. Pulses are nonpalpable due to the splint and dressings. He is able to wiggle his toes upon command. He straightens out his knee. He has no effusion of the left knee. Skin is intact around the splint edges. No edema of his left lower extremity. Results & Data Vital Signs (Past 12 Hours) Vital Signs Temp Pulse Resp BP Pulse Ox O2 Del Method 08/21/23 07:36 36.3 C L 74 18 171/89 H 99 Room Air
--- NOTE | 2023-08-21 13:10 | Discharge Summary ---
Discharge Summary Date of Service August 21, 2023 Principal Dx & Hospital Course #1 = Principal Diagnosis (1) Trimalleolar fracture of ankle, closed: (2) Hypertension: (3) Hyperlipidemia: (4) Tachy-fe syndrome: (5) Pacemaker: (6) BPH (benign prostatic hyperplasia): Plan This is an 87-year-old male with PMH of hypothyroidism, asthma, tachybradycardia status post pacemaker placement, hypertension, BPH, history of thyroid cancer, dementia and other medical problems listed below who presents after twisting his ankle and was found to have a trimalleolar fracture. Left Leg Trimalleolar fracture s/p ORIF on july Fall at home, was ambulating with walker until it became too painful Lower extremity CT shows confirmation of the trimalleolar left ankle fracture as above. No dislocation Pre-op CXR with stable cardiomegaly, no acute process within the chest. EKG with SR with PACs, RBBB, h/o inferior infarct. Patient underwent open reduction and internal fixation on August 18, 2023 Pain control with Tylenol, low dose tramadol aspirin bid for dvt prophylaxis. Discontinue after 4 weeks or at discretion of orthopedics Colace and Senna for bowel prophylaxis, this may need to be titrated for daily bowel movement PT/OT eval and pt is going to be discharged to [facility] today HTN BP elevated, optimize pain control. Continue Toprol HLD Chronic, stable. Continue statin Asthma Well-controlled. Continue home inhalers Tachy-fe syndrome S/p pacemaker BPH Continue Tamsulosin. Bladder scan PRN Dementia pt with baseline confusion, at baseline per family DVT Ppx: aspirin Code status: FULL per discussion with patient, PCP: Patricia Dispo: patient underwent ORIF with left leg trimalleolar fracture. Discharge to [facility] today, Notes For Next Care Provider Please check CBC, BMP in 3 days. Aspirin BID for for dvt prophylaxis while non weight bearing. Pt will need to follow up with [facility] in 2 weeks for splint removal and x-rays. Medication Changes From Visit Aspirin 81mg by mouth twice daily for dvt prophylaxis for 4 weeks or until discontinued by Orthopedic surgery * Docusate sodium 100 mg twice daily * Sennoside 8.6 mg, take 2 capsules at bedtime * Ferrous gluconate 324 mg 1 tablet by mouth twice daily with meals Continue with all other home medications Admission HPI Per Admitting Provider This is an 87-year-old male with PMH of hypothyroidism, asthma, tachybradycardia status post pacemaker placement, hypertension, BPH, history of thyroid cancer, dementia and other medical problems listed below who presents after twisting his ankle. History obtained primarily from over the phone due to patient's de mentia. Reportedly got his legs tangled yesterday and fell down on carpet. helped him up and got him a walker to ambulate with but due to worsening pain and difficulty walking today, decided to call EMS to have him brought to ED for further evaluation. States he has difficulty swallowing and diet is primarily liquids. Has incontinence and uses depends. Does ambulate independently at baseline. Is oriented to person and place but has difficulty remembering details or current situation. Resides at [facility] with his , who manages his medications. Patient states he is comfortable right now and ankle does not hurt at rest. No fever, chills, lightheadedness, chest pain, shortness of breath, nausea, vomiting, abdominal pain, dysuria, diarrhea or constipation. Admission Exam Per Admitting Provider General Appearance: WD/WN, vitals as above, NAD, sitting up in bed, pleasantly confused Head: normocephalic, atraumatic Eyes: normal inspection, PERRL, conjunctivae normal, anicteric sclerae ENT: external ear and nose normal, oropharynx normal Neck: normal visual inspection, trachea midline, no thyromegaly Respiratory: normal respiratory effort, lungs clear to auscultation, no wheeze, rales, rhonchi. No accessory muscle use Cardiovascular: regular rate, rhythm, no murmur, normal peripheral pulses, no BLE edema. Vessels: no JVD Chest: normal inspection of chest Abdomen/GI: normal bowel sounds, soft, nontender, no hepatosplenomegaly Extremities/Musculoskeletal: no cyanosis or clubbing, extremities motor strength 5/5, + LLE in splint, + NVI Neurologic: PERRL, EOMI, accommodation nl, no face palsy, no dysarthria, CN's II-XI intact bilaterally and moves all extremities Psychiatric: A+Ox person and place, euthymic affect Skin: no rashes, normal color, warm/dry Discharge Exam Gen: WD/WN, Elderly, M, NAD, A&O x2 basics only HEENT: Normocephalic, atraumatic, conjunctivae moist, sclerae anicteric, mucous membranes moist. Lung: Clear to Auscultation bilaterally, no wheezes/rales/rhonchi Heart: Regular rate, regular rhythm, no murmurs, rubs, or gallops Abdomen: Soft, NT, ND +BS x 4 Extremities: LLE Splint in place, NVI distally Skin: Warm, no rash, negative turgor. Updated Medication List Medication Instructions Recorded Confirmed Type atorvastatin 10 mg tablet 10 mg PO HS 12/29/18 08/17/23 History fluticasone 250 mcg-salmeterol 50 1 puffs inhalation BID 12/29/18 08/17/23 History mcg/dose blistr powdr for inhalation (Advair Diskus) food supplemt, lactose-reduced 1 ea PO QAM 12/29/18 08/17/23 History (Ensure oral liquid) levothyroxine 88 mcg tablet 88 mcg PO QAM 12/21/20 08/17/23 History metoprolol succinate 50 mg 75 mg PO QPM 12/21/20 08/17/23 History tablet,extended release 24 hr tamsulosin 0.4 mg capsule 0.4 mg PO DAILY 90 days #90 caps 08/10/22 08/17/23 Rx albuterol sulfate 90 mcg/actuation 2 puff inhalation Q6H PRN sob or 08/17/23 08/17/23 History aerosol inhaler wheezing aspirin 81 mg tablet,delayed 81 mg PO BID #60 tabs 08/21/23 Rx release docusate sodium 100 mg capsule 100 mg PO BID #30 caps 08/21/23 Rx ferrous gluconate 324 mg (38 mg 324 mg PO BIDM #60 tabs 08/21/23 Rx iron) tablet sennosides 8.6 mg tablet (Senokot) 17.2 mg (2 x 8.6 mg) PO HS #30 tabs 08/21/23 Rx Hospital Stay Data Consultations 08/17/23 13:15 ED Decision to Admit Stat 08/17/23 18:19 Consult Orthopedic Surgery Routine Procedures Performed Operation Date: 08/18/23 11:30 Actual Procedures p Open Reduction Internal Fixation Ankle(Left) - Ottoniel Gupta MD Diagnostic Imagining Performed Ankle X-Ray 08/17/23 11:46 XR ankle LT min 3V routine, XR foot LT min 3V routine CLINICAL HISTORY: twisted, pain. left ankle and foot pain. COMPARISON STUDY: None. FINDINGS: There is a mildly displaced oblique fracture within the distal left fibula. This demonstrates up to 3 mm of lateral displacement. No dislocation. Small nondisplaced fractures are noted at the medial and posterior malleolus. There is diffuse soft tissue swelling within the left ankle and foot. No fracture or dislocation within the left foot. The Lisfranc joint is intact. IMPRESSION: 1. Trimalleolar left ankle fracture as described above. No dislocation. 2. No acute fractures within the left foot. ACT 112: Negative or not required by law. Electronically signed by: Alejandro Cardoso M.D. 08/17/2023 12:58 PM Foot X-Ray 08/17/23 11:46 XR ankle LT min 3V routine, XR foot LT min 3V routine CLINICAL HISTORY: twisted, pain. left ankle and foot pain. COMPARISON STUDY: None. FINDINGS: There is a mildly displaced oblique fracture within the distal left fibula. This demonstrates up to 3 mm of lateral displacement. No dislocation. Small nondisplaced fractures are noted at the medial and posterior malleolus. There is diffuse soft tissue swelling within the left ankle and foot. No fracture or dislocation within the left foot. The Lisfranc joint is intact. IMPRESSION: 1. Trimalleolar left ankle fracture as described above. No dislocation. 2. No acute fractures within the left foot. ACT 112: Negative or not required by law. Electronically signed by: Alejandro Cardoso M.D. 08/17/2023 12:[address] 08/17/23 12:[address] DOSE: 488.4 mGy.cm HISTORY: Left ankle pain. fx, communuted TECHNIQUE: Multiaxial CT images of the left ankle were performed and reformatted in the sagittal and coronal plane without the use of contrast. A dose lowering technique was utilized adhering to the principles of ALARA. COMPARISON: Left ankle radiograph 08/17/2023. FINDINGS: There is confirmation of a trimalleolar left ankle fracture. The medial and posterior malleoli fractures are nondisplaced. The distal fibular fracture demonstrates up to 3 mm of lateral and posterior displacement. No dislocation. The calcaneus appears intact. There are small plantar and posterior calcaneal spurs noted. Subcutaneous edema noted within the left ankle. IMPRESSION: Confirmation of the trimalleolar left ankle fracture as above. No dislocation. ACT 112: Negative or not required by law. Electronically signed by: Alejandro Cardoso M.D. 08/17/2023 1:15 PM Chest X-Ray 08/17/23 13:23 XR chest 1V portable HISTORY: preop COMPARISON: Chest 12/17/2005. FINDINGS: No pneumothorax. No pleural effusions. Left basilar linear densities favor subsegmental atelectasis or scarring. Otherwise, the lungs are clear. Calcifications within the aortic knob. The cardiac silhouette remains mildly enlarged. Is left-sided dual-chamber pacemaker. IMPRESSION: Stable mild cardiomegaly. Otherwise, no acute process within the chest. ACT 112: Negative or not required by law. Electronically signed by: Alejandro Cardoso M.D. 08/17/2023 2:44 PM Ankle X-Ray 08/18/23 11:39 FL ankle LT min 3V RTN CLINICAL HISTORY: lt ankle TECHNIQUE: 4 views were obtained with the C-arm in the OR with the above procedure. Total fluoroscopy time was 24 seconds. Radiation dose was 0.55 mGy. Comparison: Comparison is made to ankle radiographs 08/17/2023 FINDINGS/IMPRESSION: Intraoperative images were obtained of open reduction internal fixation of the left ankle fracture. Please correlate with intraoperative fluoroscopy and operative report. ACT 112: Negative or not required by law. Electronically signed by: Remberto Rodgers M.D. 08/18/2023 8:10 PM Pending Results Patient Have Any Pending Studies at Discharge: No Discharge Instructions Given to Patient (Per Discharging Provider) MEDICATION CHANGES: * Aspirin 81mg by mouth twice daily for dvt prophylaxis for 4 weeks or until discontinued by Orthopedic surgery * Docusate sodium 100 mg twice daily * Sennoside 8.6 mg, take 2 capsules at bedtime * Ferrous gluconate 324 mg 1 tablet by mouth twice daily with meals Continue with all other home medications RECOMMENDATIONS FOR FOLLOW-UP: Please follow up with Primary Care Provider upon discharge from rehab. Recommend recheck CBC, BMP in 3 days. OTHER INSTRUCTIONS: Seek medical attention if you have: * temperature above 101 * chest pain or trouble breathing * abdominal pain, nausea, vomiting * diarrhea, dark stools or bloody stools * any unanswered questions or concerns Call 911 if symptoms are severe. Please take good care of yourself. It has been a pleasure taking care of you. Please take care of yourself. If you have any questions regarding your recent hospitalization please contact [facility] and request Jean-Pierre Winters @ [phone]. Sharon Quijano PA-C Total Time Total Time Spent Total Time Spent (In Minutes): 46 minutes Supervising Physician Co-Signing Physician Notes Pt was seen and examined by myself, Dariela Tucker MD on the day of service. Care was coordinated with Sharon Quijano PA-C. 87yoM pleasantly confused. Admitted with L ankle fracture, s/p ORIF with Orthopedics No acute distress on exam, sitting in chair near bed. RRR, breath sounds clear Stable for discharge to acute rehab. Continue with aspirin 81mg BID for DVT prophylaxis with orthopedics followup. Otherwise as above. I spent a total [id number] coordinating, documenting, and providing care for this patient excluding time spent in the performance of separately billed services
== END 2023-08-21 16:15 | DRG 494 ==
LOC: ED 11:33 → 3N 13:17 → SUATTDRO 13:17 → 3N 16:53
DX: X50.0XXA Overexertion from strenuous movement or load, initial encounter; Y92.89 Other specified places as the place of occurrence of the external cause; E78.5 Hyperlipidemia, unspecified; F03.90 Unspecified dementia, unspecified severity, without behavioral disturbance, psychotic disturbance, mood disturbance, and anxiety; J45.909 Unspecified asthma, uncomplicated; I49.5 Sick sinus syndrome; Z95.0 Presence of cardiac pacemaker; Z85.850 Personal history of malignant neoplasm of thyroid; E03.9 Hypothyroidism, unspecified; S82.852A Displaced trimalleolar fracture of left lower leg, initial encounter for closed fracture; I10 Essential (primary) hypertension; Z79.890 Hormone replacement therapy